=== PATIENT | female | born 1965 | race Caucasian/White ===

== ENCOUNTER → 2018-02-05 | Outpatient (CLI) | payer BC ==
--- NOTE | 2018-02-05 11:33 | RADIOLOGY REPORT (SQ) ---
EXAM DESCRIPTION: MRI LUMBAR SPINE COMBO COMPLETED DATE/TIME: 02/05/2018 10:53 am REASON FOR STUDY: METASTATIC BREAST CA (C50.919) C50.919 MALIGNANT NEOPLASM OF UNSP SITE OF UNSPECI FIED FEMAL COMPARISON: Whole-body bone scan 09/12/2016 TECHNIQUE: Sagittal and Axial imaging includes T1, T1 post gadolinium, T2, STIR and gradient echo se quences. Coronal T2/HASTE imaging. CONTRAST TYPE AND DOSE: 10 mL Mult[employer]ance. RENAL FUNCTION: GFR > 60. LIMITATIONS: None. FINDINGS: VISUALIZED UPPER ABDOMEN: Limited evaluation. No acute or suspicious findings suggested. SEGMENTATION: No transitional anatomy. The lowest well-developed disc space is labeled L5-S1. ALIGNMENT: Anatomic. VERTEBRAE: Intact. No fractures. BONE MARROW: Profound decreased marrow fat content throughout the lumbar spine and visualized sacrum and pelvis. There are multiple enhancing foci within the bone marrow of the lumbar and lower thoraci c vertebral bodies worrisome for foci metastatic disease. DISC SIGNAL: Diffuse decreased T2 weighted intervertebral disc signal without disc loss of height at L1-2, L4-5, and L5-S1. POSTERIOR ELEMENTS: Generally intact. No pars defect evident. HARDWARE: None in the spine. CORD AND CONUS: Normal in size and signal intensity. Conus at the L1 level. SOFT TISSUES: No aortic aneurysm seen. No bulky retroperitoneal adenopathy or mass. No paraspinal mas s or fluid. T10-11: At the upper edge of the field of view. No central or foraminal stenosis. Mild bilateral f acet arthropathy. T11-12: No central or foraminal stenosis. Mild bilateral facet arthropathy. T12-L1: No central or foraminal stenosis. Mild bilateral facet arthropathy. L1-L2: No central or foraminal stenosis. Mild bilateral facet arthropathy L2-L3: No central or foraminal stenosis. Mild bilateral facet arthropathy L3-L4: No central or foraminal stenosis. Mild bilateral facet arthropathy. L4-L5: Minimal posterior disc bulging, moderate bilateral facet and ligament hypertrophy. No central or foraminal encroachment. L5-S1: Tiny central posterior annular tear. No significant disc bulge. Mild bilateral facet arthrop athy. No central or foraminal encroachment. SACRUM: Visualized upper sacrum intact. ENHANCEMENT: No abnormal lumbar nerve root or conus enhancement. There are multiple subcentimeter fo ci of contrast enhancement scattered throughout the bone marrow of the lower thoracic and lumbar vert ebral bodies, visualized sacrum and pelvis from metastatic bony disease OTHER: No other significant findings. IMPRESSION: Bony metastatic disease No abnormal masses or enhancement along the distal thoracic cord, conus, or lumbar nerve roots. TECHNICAL DOCUMENTATION: JOB ID: [id number] [employer]- All Rights Reserved Reading location - IP/workstation name: [facility]
== END ==
LOC: RAD 09:53
PROVIDERS: ATTEND Radiology Radiation Oncology
DX: C79.51 Secondary malignant neoplasm of bone (principal); C50.919 Malignant neoplasm of unspecified site of unspecified female breast
CPT/HCPCS: 82565; 72158; A9577

== ENCOUNTER → 2018-03-13 | Outpatient (CLI) | payer BC ==
--- NOTE | 2018-03-13 13:05 | RADIOLOGY REPORT (SQ) ---
EXAM DESCRIPTION: NM WHOLE BODY BONE SCAN COMPLETED DATE/TIME: 03/13/2018 12:49 pm REASON FOR STUDY: BREAST CA (C50.919) C50.919 MALIGNANT NEOPLASM OF UNSP SITE OF UNSPECIFIED FEMAL COMPARISON: 09/12/2016 RADIONUCLIDE AND DOSE: 22.0 millicuries Tc99m MDP. The route of agent administration: Intravenous. ADDITIONAL DRUGS AND DOSES: None. TECHNIQUE: Routine delayed images at 3 hour post radionuclide injection acquired of the bony skeleto n including anterior and posterior whole-body projections and additional focused images as needed. LIMITATIONS: None. FINDINGS: BONES: There is widespread uptake in the axial skeleton and proximal right humerus. New a alley of increased uptake in the posterior sacrum bilaterally. KIDNEYS: Symmetric excretion without obstruction. OTHER: No other significant finding. IMPRESSION: Positive for bone metastasis. COMMENT: Quality measure 147: Current bone scan is compared with any available plain radiographs, p rior bone scans, and CT/MRI. TECHNICAL DOCUMENTATION: JOB ID: [id number] [employer]- All Rights Reserved Reading location - IP/workstation name: [email or web address]
== END ==
LOC: RAD 08:27
PROVIDERS: ATTEND Internal Medicine Geriatric Medicine
DX: C50.919 Malignant neoplasm of unspecified site of unspecified female breast (principal)
CPT/HCPCS: 78306; A9561; Q9969

== ENCOUNTER → 2018-03-16 | Outpatient (CLI) | payer BC ==
--- NOTE | 2018-03-16 14:27 | RADIOLOGY REPORT (SQ) ---
EXAM DESCRIPTION: CT CHEST WITH COMPLETED DATE/TIME: 03/16/2018 2:03 pm REASON FOR STUDY: BREAST CA (C50.919) C50.919 MALIGNANT NEOPLASM OF UNSP SITE OF UNSPECIFIED FEMAL COMPARISON: None. TECHNIQUE: CT scan of the chest performed using helical scanning technique with dynamic intravenous contrast injection. Images reviewed with lung, soft tissue and bone windows. Reconstructed coronal and sagittal MPR images reviewed. All images stored on PACS. All CT scanners at this facility use dose modulation, iterative reconstruction, and/or weight based d osing when appropriate to reduce radiation dose to as low as reasonably achievable (ALARA). [facility]: Dose Right [facility]: CareDose [facility]: Dose Right [facility]: Teradose 4D [facility]: [employer] CONTRAST TYPE AND DOSE: 100 cc Isovue 370- low osmolar. RENAL FUNCTION: GFR > 60. RADIATION DOSE: . LIMITATIONS: None. FINDINGS: LUNGS AND PLEURA: Scattered pulmonary nodules in both lungs measuring up to about 5 mm. N o effusions. HILAR AND MEDIASTINAL STRUCTURES: No identified masses or abnormal nodes. HEART AND VASCULAR STRUCTURES: No aneurysm or dissection. No central pulmonary emboli. No pericardi al effusion. HARDWARE: None in the chest. UPPER ABDOMEN: See separate report of the CT of the abdomen. THYROID AND OTHER SOFT TISSUES: Bilateral mastectomy and breast reconstruction. BONES: Diffuse mixed sclerotic and lytic bone metastasis. OTHER: No other significant finding. IMPRESSION: 1. Pulmonary nodules suspicious for metastatic disease. 2. Bone metastasis. TECHNICAL DOCUMENTATION: JOB ID: [id number] Quality ID # [id number]: Final reports with documentation of one or more dose reduction techniques (e.g., Au tomated exposure control, adjustment of the mA and/or kV according to patient size, use of iterative reconstruction technique) 2010 [employer]- All Rights Reserved Reading location - IP/workstation name: Unknown
--- NOTE | 2018-03-16 14:32 | RADIOLOGY REPORT (SQ) ---
EXAM DESCRIPTION: CT ABD/PELVIS WITH IV ORAL COMPLETED DATE/TIME: 03/16/2018 2:03 pm REASON FOR STUDY: BREAST CA (C50.919) C50.919 MALIGNANT NEOPLASM OF UNSP SITE OF UNSPECIFIED FEMAL COMPARISON: None. TECHNIQUE: CT scan of the abdomen and pelvis performed using helical scanning technique with dynamic intravenous contrast injection. No oral contrast. Images reviewed with lung, soft tissue, and bone windows. Reconstructed coronal and sagittal MPR images reviewed. Delayed images for evaluation of the urinary system also acquired. All images stored on PACS. All CT scanners at this facility use dose modulation, iterative reconstruction, and/or weight based d osing when appropriate to reduce radiation dose to as low as reasonably achievable (ALARA). [facility]: Dose Right [facility]: CareDose [facility]: Dose Right [facility]: Teradose 4D [facility]: [employer] CONTRAST TYPE AND DOSE: See separate report of the same date. RENAL FUNCTION: See separate report of the same date. RADIATION DOSE: . LIMITATIONS: None. FINDINGS: LOWER CHEST: See separate report of the CT of the chest. LIVER: Subtle low-density lesion in the dome of the liver on series 3, image 14 measuring about 1 cm. SPLEEN: Normal size. No focal lesions. PANCREAS: No masses. No significant calcifications. No adjacent inflammation or peripancreatic fluid collections. Pancreatic duct not dilated. GALLBLADDER: No identified stones by CT criteria. No inflammatory changes to suggest cholecystitis. ADRENAL GLANDS: Subcentimeter left adrenal nodule too small to characterize. RIGHT KIDNEY AND URETER: No solid masses. Renal calculi measuring up to 13 mm. No hydronephrosis or hydroureter. LEFT KIDNEY AND URETER: No solid masses. Renal calculi measuring up to 6 mm. No hydronephrosis or hydroureter. AORTA AND VESSELS: No aneurysm. No dissection. Renal arteries, SMA, celiac without stenosis. RETROPERITONEUM: No retroperitoneal adenopathy, hemorrhage or masses. BOWEL AND PERITONEAL CAVITY: No masses or inflammatory changes. No free fluid or peritoneal masses. APPENDIX: Normal. PELVIS: No mass. No free fluid. Normal bladder. ABDOMINAL WALL: No masses. No hernias. BONES: Diffuse skeletal metastasis. OTHER: No other significant finding. IMPRESSION: 1. Subtle lesion in the dome of the liver too small to further characterize. Cannot exclude metastat ic lesion. Consider MRI if this will alter management. 2. Bone metastasis. 3. Nonobstructing bilateral renal calculi. TECHNICAL DOCUMENTATION: JOB ID: [id number] Quality ID # 436: Final reports with documentation of one or more dose reduction techniques (e.g., Au tomated exposure control, adjustment of the mA and/or kV according to patient size, use of iterative reconstruction technique) 2010 [employer]- All Rights Reserved Reading location - IP/workstation name: Unknown
== END ==
LOC: RAD 13:15
PROVIDERS: ATTEND Internal Medicine Geriatric Medicine
DX: C50.919 Malignant neoplasm of unspecified site of unspecified female breast (principal); C79.51 Secondary malignant neoplasm of bone; N20.0 Calculus of kidney
CPT/HCPCS: 71260; 74177; 82565

== ENCOUNTER → 2018-06-22 | Outpatient (CLI) | payer BC ==
--- NOTE | 2018-06-22 08:40 | WOMENS IMAGING REPORT ---
EXAM DESCRIPTION: U/S ABDOMEN LIMITED COMPLETED DATE/TIME: 06/22/2018 8:24 am REASON FOR STUDY: R10.9 R10.9 UNSPECIFIED ABDOMINAL PAIN COMPARISON: 03/16/2018 CT chest abdomen and pelvis TECHNIQUE: Dynamic and static grayscale images acquired of the abdomen and recorded on PACS. Additio nal selected color Doppler and spectral images recorded. LIMITATIONS: Midline bowel gas FINDINGS: PANCREAS: Midline pancreas unremarkable LIVER: Normal size. Multiple hypoechoic solid nodules in the right and left lobe liver worrisome for metastatic disease. Largest lesion in the left lobe liver is 2.5 cm in size. Largest lesion in the right lobe liver is 2 cm in size. Findings discussed with Dr. Carrasco LIVER VASCULATURE: Normal directional flow of the main portal vein and hepatic veins. GALLBLADDER: No stones. Normal wall thickness. No pericholecystic fluid. ULTRASOUND-DETECTED BUTLER'S SIGN: Negative. INTRAHEPATIC DUCTS AND COMMON DUCT: CBD and intrahepatic ducts normal caliber. No filling defects. INFERIOR VENA CAVA: Normal flow. AORTA: No aneurysm. RIGHT KIDNEY: Normal size. Right-sided intrarenal nonobstructive stones are present, the largest is 13 cm in the upper pole right kidney. No right hydronephrosis PERITONEAL AND RIGHT PLEURAL SPACE: No ascites or effusions. OTHER: No other significant findings. IMPRESSION: Liver metastatic lesions TECHNICAL DOCUMENTATION: JOB ID: [id number]- All Rights Reserved Reading location - IP/workstation name: [email or web address]
== END ==
LOC: WI 07:26
PROVIDERS: ATTEND Internal Medicine Hematology & Oncology
DX: R10.9 Unspecified abdominal pain (principal)
CPT/HCPCS: 76705

== ENCOUNTER 2018-09-03 10:34 | Day surgery (SDC) | payer BC ==
[~2018-09-03 10:34] MED LIST: CEFAZOLIN 1 GM/D5W RTU 1 GM/50 ML RTUPB IV ONE; CEFAZOLIN 1 GM/D5W RTU 1 GM/50 ML RTUPB IV PRN; DEXTROSE 5%-1/2 NORMAL SALINE 1,000 ML IV PRN; DIAZEPAM 5 MG TABLET ONE; DIAZEPAM 5 MG TABLET PO PRN; OXYCODONE-ACETAMINOPHEN 5-325 MG TABLET ONE; OXYCODONE-ACETAMINOPHEN 5-325 MG TABLET PO PRN
[2018-09-03] MEDS ORDERED: BACITRACIN INJ 50,000 UNIT VIAL ONE (11:26)
[2018-09-03] MEDS ORDERED: LIDOCAINE 0.5% INJ-PF (5 MG/ML) 50 ML SDV ONE (11:26)
[2018-09-03] MEDS ORDERED: FENTANYL CITRATE INJ/PF 100 MCG/2 ML AMPUL ONE (11:29)
[2018-09-03] MEDS ORDERED: MIDAZOLAM 2 MG/2 ML INJ ONE (11:29)
[2018-09-03 11:31] LABS: HEMATOCRIT 33.2 % (36.0-47.0); HEMOGLOBIN 10.8 g/dL (12.0-15.5); MEAN CORPUSCULAR HEMOGLOBIN 27.6 pg (27.0-33.4); MEAN CORPUSCULAR HGB CONC 32.6 g/dL (32.0-36.0); MEAN CORPUSCULAR VOLUME 85 fl (80-97); PLATELET COUNT 155 10^3/uL (150-450); RED BLOOD COUNT 3.91 10^6/uL (3.72-5.28); RED CELL DISTRIBUTION WIDTH 21.1 % (11.5-14.0); WHITE BLOOD COUNT 21.8 10^3/uL (4.0-10.5)
--- NOTE | 2018-09-03 11:42 | RADIOLOGY REPORT (SQ) ---
EXAM DESCRIPTION: CHEST SINGLE VIEW COMPLETED DATE/TIME: 09/03/2018 11:02 am REASON FOR STUDY: PREOP COMPARISON: 09/03/2010. EXAM PARAMETERS: NUMBER OF VIEWS: One view. TECHNIQUE: Single frontal radiographic view of the chest acquired. RADIATION DOSE: NA LIMITATIONS: None. FINDINGS: LUNGS AND PLEURA: No opacities, masses or pneumothorax. No pleural effusion. MEDIASTINUM AND HILAR STRUCTURES: No masses. Contour normal. HEART AND VASCULAR STRUCTURES: Heart normal in size. Normal vasculature. BONES: No acute findings. HARDWARE: None in the chest. OTHER: No other significant finding. IMPRESSION: NO ACUTE RADIOGRAPHIC FINDING IN THE CHEST. TECHNICAL DOCUMENTATION: JOB ID: [id number] [employer]- All Rights Reserved Reading location - IP/workstation name: [email or web address]
[2018-09-03 12:38] LABS: ANION GAP 10 (5-19); BLOOD UREA NITROGEN 18 mg/dL (7-20); CALCIUM 8.5 mg/dL (8.4-10.2); CARBON DIOXIDE 28 mmol/L (22-30); CHLORIDE 101 mmol/L (98-107); GLUCOSE 104 mg/dL (75-110); SODIUM 139.2 mmol/L (137-145)
--- NOTE | 2018-09-03 13:22 | Discharge Summary ---
Discharge Summary (SDC) - Discharge Final Diagnosis: Metastatic breast cancer. Date of Surgery: 09/03/18 Discharge Date: 09/05/18 Condition: Good Treatment or Instructions: Discharge home [after recovery per ASU criteria]. Diet as tolerated, when fully awake advance as tolerated. Activities within moderation encouraged. Follow up in my office by appointment in about [1 week]. Call for appointment. Leave wounds [covered], [keep clean and dry, until office visit in 1 week]. Hold of on school/work [until evaluation in office]. Meds per med rec. Percocet. May shower [in 48 hrs], [try to keep operated area as dry as possible]. Prescriptions: Oxycodone HCl/Acetaminophen [Percocet 5-325 mg Tablet] 1 tab PO ASDIR PRN #10 tab PRN Reason: Referrals: MONIQUE RUSH MD [Primary Care Provider] - Discharge Diet: As Tolerated Respiratory Treatments at Home: Deep Breathing/Coughing Discharge Activity: Activity As Tolerated Report the Following to Your Physician Immediately: Shortness of Breath, Unusual Bleeding
--- NOTE | 2018-09-03 13:50 | Operative Report ---
Operative Report DATE OF SURGERY: 09/03/18 PREOPERATIVE DIAGNOSIS: Metastatic breast cancer. POSTOPERATIVE DIAGNOSIS: Metastatic breast cancer. OPERATION: 1. Ultrasound evaluation of the right internal jugular vein. 2. Port-A-Cath insertion via real time access in the right internal jugular vein. 3. Angiogram and interpretation. SURGEON: YASEMIN BROWN CASING RUNNING MACHINE TENDER: None. ANESTHESIA: Moderate Sedation TISSUE REMOVED OR ALTERED: Not applicable. COMPLICATIONS: None. ESTIMATED BLOOD LOSS: 5 mL. INTRAOPERATIVE FINDINGS: Of a satisfactory right internal jugular vein to support catheter. About 1.5 cm in diameter. Satisfactory placement with position of the tip of the catheter just down in the right atrium. Easy egress of blood and ingress of heparinized solution. Smooth flow of contrast through the right atrium, ventricle and pulmonary outflow tract. PROCEDURE: After obtaining informed consent, the patient was taken to [facility] and positioned supine. The [right] neck and chest were prepared with chlorhexidine and draped out with sterile linen. After the " universal timeout", in which it was verified that the patient continued to receive antibiotic, the procedure commenced. A steriley sheathed ultrasound probe was used to evaluate the [ right] internal jugular vein. Local anesthesia was infiltrated adjacent to the probe. Access into the [right] internal jugular vein was obtained using a micropuncture needle, followed by micropuncture wire and then a micropuncture catheter. This was followed by introduction of a 0.035 guidewire the tip of which was placed down into the inferior vena cava . The port sites was marked , locally anesthetized and incision made. Dissection now proceeded to the deep subcutaneous subcutaneous tissues so that a pocket for the port was made. Meticulous hemostasis was secured and the catheter was tunneled between the 2 incisions. Proximally, the catheter was now positioned using a peel-away sheath. Distally the catheter was tailored to an appropriate length and then mated to the port using the contained fixating device. The port was now placed in the pocket and the catheter optimally positioned. The port was accessed with a Tanner needle and an angiogram done under digital subtraction. The findings as dictated. With adequate and satisfactory positioning, both lumens of the chamber were irrigated with heparinized solution. The wounds were now closed using interrupted 3-0 PDS to the subcutaneous tissues and a continuous subcuticular suture of 4-0 Monocryl to the skin. These are reinforced with Steri-Strips over benzoin and then dressings applied. Copies of the dictated operative report for Dr. Yasemin Thomas MD.
[2018-09-03] MEDS ORDERED: DEXTROSE 5%-1/2 NORMAL SALINE 500 ML IV ONE (14:00)
--- NOTE | 2018-09-03 14:00 | RADIOLOGY REPORT (SQ) ---
EXAM DESCRIPTION: PORTACATH INSERTION COMPLETED DATE/TIME: 09/03/2018 1:50 pm REASON FOR STUDY: C50.911 C50.911 MALIGNANT NEOPLASM OF UNSP SITE OF RIGHT FEMALE YUE COMPARISON: None. FLUOROSCOPY TIME: Less than 0.1 minute. 8 images saved to PACS. TECHNIQUE: Intra-operative images acquired during surgical procedure to evaluate progress. NUMBER OF IMAGES: 8 images. LIMITATIONS: None. FINDINGS: Images of the chest acquired during catheter placement. IMPRESSION: IMAGE(S) OBTAINED DURING PROCEDURE. COMMENT: Quality ID 145: Final reports for procedures using fluoroscopy that document radiation exp osure indices, or exposure time and number of fluorographic images (if radiation exposure indices are not available) Please consult full operative report of the attending physician for description of the procedure. TECHNICAL DOCUMENTATION: JOB ID: [id number] [employer]- All Rights Reserved Reading location - IP/workstation name: [email or web address]
[2018-09-03 14:33] VITALS: BP 102/61
== END 2018-09-03 14:30 | disposition home or self-care (01) ==
LOC: CCL 10:34
PROVIDERS: ATTEND Surgery
DX: C50.911 Malignant neoplasm of unspecified site of right female breast (principal); Z01.818 Encounter for other preprocedural examination; D64.9 Anemia, unspecified; Z79.899 Other long term (current) drug therapy
CPT/HCPCS: 36415; 85027; 80048; 36561; 76937; 77001; 71045; C1752; C1788; Q9967; J2250; J3490 ×2; J0690; J3010; J1644

== ENCOUNTER → 2018-11-15 | Outpatient (CLI) | payer BC ==
--- NOTE | 2018-11-15 12:29 | RADIOLOGY REPORT (SQ) ---
EXAM DESCRIPTION: CT CHEST WITH COMPLETED DATE/TIME: 11/15/2018 10:26 am REASON FOR STUDY: BREAST CA (C50.911) C50.911 MALIGNANT NEOPLASM OF UNSP SITE OF RIGHT FEMALE YUE COMPARISON: 03/16/2018 TECHNIQUE: CT scan of the chest performed using helical scanning technique with dynamic intravenous contrast injection. Images reviewed with lung, soft tissue and bone windows. Reconstructed coronal and sagittal MPR and MIP images reviewed. All images stored on PACS. All CT scanners at this facility use dose modulation, iterative reconstruction, and/or weight based d osing when appropriate to reduce radiation dose to as low as reasonably achievable (ALARA). [facility]: Dose Right [facility]: CareDose [facility]: Dose Right [facility]: Teradose 4D [facility]: [employer] CONTRAST TYPE AND DOSE: See separate report of the same date. RENAL FUNCTION: See separate report. RADIATION DOSE: . LIMITATIONS: None. FINDINGS: LUNGS AND PLEURA: Interval improvement. Several faint persistent pulmonary nodules but no new nodules or progression. Largest nodule about 5 mm. Several nodules have resolved. HILAR AND MEDIASTINAL STRUCTURES: No identified masses or abnormal nodes. HEART AND VASCULAR STRUCTURES: No aneurysm or dissection. No central pulmonary emboli. No pericardi al effusion. HARDWARE: None in the chest. UPPER ABDOMEN: See separate report of the CT of the abdomen. THYROID AND OTHER SOFT TISSUES: Bilateral breast implants. BONES: Extensive mixed sclerotic and lytic bone metastasis unchanged. No pathologic fracture. OTHER: Right-sided port tip in the SVC. IMPRESSION: Favorable response to therapy of pulmonary nodules. Bone metastasis. TECHNICAL DOCUMENTATION: JOB ID: [id number] Quality ID # 436: Final reports with documentation of one or more dose reduction techniques (e.g., Au tomated exposure control, adjustment of the mA and/or kV according to patient size, use of iterative reconstruction technique) 2010 [employer]- All Rights Reserved Reading location - IP/workstation name: [email or web address]
--- NOTE | 2018-11-15 12:51 | RADIOLOGY REPORT (SQ) ---
EXAM DESCRIPTION: CT ABD/PELVIS WITH IV ORAL COMPLETED DATE/TIME: 11/15/2018 10:26 am REASON FOR STUDY: BREAST CA (C50.911) C50.911 MALIGNANT NEOPLASM OF UNSP SITE OF RIGHT FEMALE YUE COMPARISON: 03/16/2018 TECHNIQUE: CT scan of the abdomen and pelvis performed using helical scanning technique with dynamic intravenous contrast injection. No oral contrast. Images reviewed with lung, soft tissue, and bone windows. Reconstructed coronal and sagittal MPR images reviewed. Delayed images for evaluation of the urinary system also acquired. All images stored on PACS. All CT scanners at this facility use dose modulation, iterative reconstruction, and/or weight based d osing when appropriate to reduce radiation dose to as low as reasonably achievable (ALARA). [facility]: Dose Right [facility]: CareDose [facility]: Dose Right [facility]: Teradose 4D [facility]: [employer] CONTRAST TYPE AND DOSE: contrast/concentration: Isovue 350.00 mg/ml; Total Contrast Delivered: 51.0 ml; Total Saline Delivered: 65.0 ml RENAL FUNCTION: GFR > 60. RADIATION DOSE: CT Rad equipment meets quality standard of care and radiation dose reduction techniq ues were employed. CTDIvol: 4.4 - 4.5 mGy. DLP: 579 mGy-cm.. LIMITATIONS: None. FINDINGS: LOWER CHEST: See separate report of the CT of the chest. LIVER: Innumerable low-density lesions scattered throughout the liver, largest 2 cm subdiaphragmatic. SPLEEN: Normal size. No focal lesions. PANCREAS: No masses. No significant calcifications. No adjacent inflammation or peripancreatic fluid collections. Pancreatic duct not dilated. GALLBLADDER: No identified stones by CT criteria. No inflammatory changes to suggest cholecystitis. ADRENAL GLANDS: No significant masses or asymmetry. RIGHT KIDNEY AND URETER: No solid masses. Unchanged renal calculi. No hydronephrosis or hydrouret er. LEFT KIDNEY AND URETER: No solid masses. Unchanged renal calculi. No hydronephrosis or hydrourete r. AORTA AND VESSELS: No aneurysm. No dissection. Renal arteries, SMA, celiac without stenosis. RETROPERITONEUM: New adenopathy, the largest 1.3 x 0.8 cm image 38 to left of midline. BOWEL AND PERITONEAL CAVITY: No masses or inflammatory changes. No free fluid or peritoneal masses. APPENDIX: Normal. PELVIS: No mass. No free fluid. Normal bladder. ABDOMINAL WALL: No masses. No hernias. BONES: Stable bone metastasis. OTHER: No other significant finding. IMPRESSION: New liver and retroperitoneal metastasis. TECHNICAL DOCUMENTATION: JOB ID: [id number] Quality ID # 436: Final reports with documentation of one or more dose reduction techniques (e.g., Au tomated exposure control, adjustment of the mA and/or kV according to patient size, use of iterative reconstruction technique) 2010 [employer]- All Rights Reserved Reading location - IP/workstation name: [facility]
--- NOTE | 2018-11-15 16:04 | RADIOLOGY REPORT (SQ) ---
EXAM DESCRIPTION: NM WHOLE BODY BONE SCAN COMPLETED DATE/TIME: 11/15/2018 2:52 pm REASON FOR STUDY: BREAST CA (C50.911) C50.911 MALIGNANT NEOPLASM OF UNSP SITE OF RIGHT FEMALE YUE [facility]: [facility] RADIONUCLIDE AND DOSE: 21.3 millicuries Tc99m MDP. The route of agent administration: Intravenous. ADDITIONAL DRUGS AND DOSES: None. TECHNIQUE: Routine delayed images at 3 hour post radionuclide injection acquired of the bony skeleto n including anterior and posterior whole-body projections and additional focused images as needed. LIMITATIONS: None. FINDINGS: BONES: Multiple areas of increased uptake in the axial skeleton and proximal humerus. Les s conspicuous in the proximal right humerus compared to the prior. No new areas of abnormal uptake. KIDNEYS: Symmetric excretion without obstruction. OTHER: No other significant finding. IMPRESSION: Stable bone metastasis. No progression. COMMENT: Quality measure 147: Current bone scan is compared with any available plain radiographs, p rior bone scans, and CT/MRI. TECHNICAL DOCUMENTATION: JOB ID: [id number] [employer]- All Rights Reserved Reading location - IP/workstation name: [email or web address]
== END ==
LOC: RAD 09:37
PROVIDERS: ATTEND Internal Medicine Hematology & Oncology
DX: C50.911 Malignant neoplasm of unspecified site of right female breast (principal); C79.51 Secondary malignant neoplasm of bone
CPT/HCPCS: 78306; 71260; 74177; A9561; Q9969

== ENCOUNTER → 2019-01-29 | Outpatient (CLI) | payer BC ==
--- NOTE | 2019-01-29 14:54 | RADIOLOGY REPORT (SQ) ---
EXAM DESCRIPTION: NM WHOLE BODY BONE SCAN COMPLETED DATE/TIME: 01/29/2019 2:44 pm REASON FOR STUDY: C50.911 MALIGNANT NEOPLASM OF UNSP SITE OF RIGHT FEMALE BREAST C50.911 MALIGNANT NEOPLASM OF UNSP SITE OF RIGHT FEMALE YUE COMPARISON: Bone scan dated 11/15/2018, and 03/13/2018 CT chest abdomen pelvis dated 11/15/2018 RADIONUCLIDE AND DOSE: 20.9 millicuries Tc99m MDP. The route of agent administration: Intravenous. ADDITIONAL DRUGS AND DOSES: None. TECHNIQUE: Routine delayed images at 3 hour post radionuclide injection acquired of the bony skeleto n including anterior and posterior whole-body projections and additional focused images as needed. LIMITATIONS: None. FINDINGS: BONES: There are persistent areas of uptake in the axial skeleton. Mild uptake remains in the right and left proximal humeri. There is increased uptake in the lumbar spine. When compared t o prior study findings are stable. KIDNEYS: Symmetric excretion without obstruction. OTHER: No other significant finding. IMPRESSION: Stable bone scan. Persistent areas of uptake in the axial and appendicular skeleton. N o progression. COMMENT: Quality measure 147: Current bone scan is compared with any available plain radiographs, p rior bone scans, and CT/MRI. TECHNICAL DOCUMENTATION: JOB ID: [id number] [employer]- All Rights Reserved Reading location - IP/workstation name: [email or web address]
== END ==
LOC: RAD 11:26
PROVIDERS: ATTEND Internal Medicine Hematology & Oncology
DX: C50.911 Malignant neoplasm of unspecified site of right female breast (principal)
CPT/HCPCS: 78306; A9561

== ENCOUNTER → 2019-02-01 | Outpatient (CLI) | payer BC ==
--- NOTE | 2019-02-01 14:01 | RADIOLOGY REPORT (SQ) ---
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 Images reviewed with lung, soft tissue and bone windows. Reconstructed coronal and sagittal MPR and MIP images reviewed. All images stored on PACS. All CT scanners at this facility use dose modulation, iterative reconstruction, and/or weight based d osing when appropriate to reduce radiation dose to as low as reasonably achievable (ALARA). [facility]: Dose Right [facility]: CareDose [facility]: Dose Right [facility]: Teradose 4D [facility]: [place] CONTRAST TYPE AND DOSE: 55 mL Omnipaque 350- low osmolar. RENAL FUNCTION: Creatinine 0.7 RADIATION DOSE: . LIMITATIONS: None. FINDINGS: LUNGS AND PLEURA: And occasional small pulmonary nodular remains there continues to be imp rovement when compared to prior study. No consolidation. HILAR AND MEDIASTINAL STRUCTURES: No identified masses or abnormal nodes. HEART AND VASCULAR STRUCTURES: No aneurysm or dissection. No central pulmonary emboli. No pericardi al effusion. HARDWARE: Pnftby-X-Kyor is in place. UPPER ABDOMEN: Hepatic lesions are noted consistent with metastatic disease. Overall there appears t o be mild improvement from prior study. Please refer to the abdomen and pelvis CT for further discus doc. THYROID AND OTHER SOFT TISSUES: No masses. No adenopathy. BONES: Widespread bony metastatic disease is again noted. OTHER: No other significant finding. IMPRESSION: 1. An occasional small pulmonary nodule remains but is improved from prior study. 2. Widespread bony metastatic disease is unchanged. 3. Hepatic disease appears slightly improved please refer to the CT abdomen pelvis for further discu ssion. TECHNICAL DOCUMENTATION: JOB ID: [id number] Quality ID # [id number]: Final reports with documentation of one or more dose reduction techniques (e.g., Au tomated exposure control, adjustment of the mA and/or kV according to patient size, use of iterative reconstruction technique) 2010 [employer]- All Rights Reserved Reading location - IP/workstation name: [email or web address]
--- NOTE | 2019-02-01 14:04 | RADIOLOGY REPORT (SQ) ---
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 TECHNIQUE: CT scan of the abdomen and pelvis performed using helical scanning technique with dynamic intravenous contrast injection. No oral contrast. Images reviewed with lung, soft tissue, and bone windows. Reconstructed coronal and sagittal MPR images reviewed. Delayed images for evaluation of the urinary system also acquired. All images stored on PACS. All CT scanners at this facility use dose modulation, iterative reconstruction, and/or weight based d osing when appropriate to reduce radiation dose to as low as reasonably achievable (ALARA). [facility]: Dose Right [facility]: CareDose [facility]: Dose Right [facility]: Teradose 4D [facility]: [employer] CONTRAST TYPE AND DOSE: contrast/concentration: Isovue 350.00 mg/ml; Total Contrast Delivered: 55.0 ml; Total Saline Delivered: 65.0 ml RENAL FUNCTION: Creatinine 0.7 RADIATION DOSE: CT Rad equipment meets quality standard of care and radiation dose reduction techniq ues were employed. CTDIvol: 4.4 - 4.5 mGy. DLP: 607 mGy-cm.. LIMITATIONS: None. FINDINGS: LOWER CHEST: Please refer to the chest CT for further discussion LIVER: Numerous hepatic lesions are again noted consistent with metastatic disease. They are too num erous to count. Overall there has been slight improvement when compared to prior study. SPLEEN: Normal size. No focal lesions. PANCREAS: No masses. No significant calcifications. No adjacent inflammation or peripancreatic fluid collections. Pancreatic duct not dilated. GALLBLADDER: No identified stones by CT criteria. No inflammatory changes to suggest cholecystitis. ADRENAL GLANDS: No significant masses or asymmetry. RIGHT KIDNEY AND URETER: No solid masses. No significant calcifications. No hydronephrosis or hyd roureter. LEFT KIDNEY AND URETER: No solid masses. No significant calcifications. No hydronephrosis or hydr oureter. AORTA AND VESSELS: No aneurysm. No dissection. Renal arteries, SMA, celiac without stenosis. RETROPERITONEUM: Mild improvement in the retroperitoneal adenopathy. BOWEL AND PERITONEAL CAVITY: No masses or inflammatory changes. No free fluid or peritoneal masses. APPENDIX: Normal. PELVIS: No mass. No free fluid. Normal bladder. ABDOMINAL WALL: No masses. No hernias. BONES: Widespread bony metastatic disease is grossly unchanged. OTHER: No other significant finding. IMPRESSION: 1. Hepatic metastases are slightly improved from prior study. 2. Retroperitoneal adenopathy is mildly improved as well. 3. Bony metastatic disease is stable. TECHNICAL DOCUMENTATION: JOB ID: [id number] Quality ID # [id number]: Final reports with documentation of one or more dose reduction techniques (e.g., Au tomated exposure control, adjustment of the mA and/or kV according to patient size, use of iterative reconstruction technique) 2010 [employer]- All Rights Reserved Reading location - IP/workstation name: [email or web address]
== END ==
LOC: RAD 12:39
PROVIDERS: ATTEND Internal Medicine Hematology & Oncology
DX: C50.911 Malignant neoplasm of unspecified site of right female breast (principal); C78.7 Secondary malignant neoplasm of liver and intrahepatic bile duct; C79.51 Secondary malignant neoplasm of bone
CPT/HCPCS: 71260; 74177; 82565

== ENCOUNTER → 2019-04-03 | Outpatient (CLI) | payer BC ==
--- NOTE | 2019-04-03 17:03 | RADIOLOGY REPORT (SQ) ---
EXAM DESCRIPTION: U/S THYROID/SFT TISS HD NECK COMPLETED DATE/TIME: 04/03/2019 4:07 pm REASON FOR STUDY: R94.6 ABNORMAL RESULTS OF THYROID FUNCTION STUDIES R94.6 ABNORMAL RESULTS OF THYR OID FUNCTION STUDIES COMPARISON: None. TECHNIQUE: Dynamic and static kan-scale images acquired of the thyroid gland. Selected additional c olor/power Doppler images recorded. All images stored to PACS. LIMITATIONS: None. FINDINGS: RIGHT LOBE: Normal size. Homogeneous echotexture. No cystic or solid masses. LEFT LOBE: Normal size. Homogeneous echotexture. Posterior left mid pole 9 mm septated cyst, anecho ic wider than tall with partial border loss. No comet tail artifact. This is a TIRADS 1 lesion ISTHMUS: Normal size. Homogeneous echotexture. No cystic or solid masses. OTHER: No other significant finding. IMPRESSION: 9 mm thyroid cyst left midpole gland, benign in appearance. TI-RADS 1 lesion Otherwise unremarkable study COMMENT: The [employer] (A[employer]) Thyroid Imaging Reporting And Data System (TI-RADS ) is an ultrasound feature based summed scoring system of risk categorization and management recommen dations for thyroid nodules. TI-RADS assessment categories are as follows: 0 - Incomplete exam: Additional imaging or comparison to prior examinations recommended. 1. - Benign: Fine-needle aspiration or follow-up not routinely recommended in the absence of clinical change. 2. - Not suspicious: Fine-needle aspiration or follow-up not routinely recommended in the absence of clinical change. 3. - Mildly suspicious: Fine-needle aspiration recommended if greater than or equal to 2.5 cm in size . Ultrasound follow-up recommended if greater than or equal to 1.5 cm in size. 4. - Moderately suspicious: Fine-needle aspiration recommended if greater than or equal to 1.5 cm in size. Ultrasound follow-up recommended if greater than or equal to 1.0 cm in size. 5. - Highly suspicious: Fine-needle aspiration recommended if greater than or equal to 1.0 cm in size . Ultrasound follow-up recommended if greater than or equal to 0.5 cm in size. TECHNICAL DOCUMENTATION: JOB ID: [id number] [employer]- All Rights Reserved Reading location - IP/workstation name: [email or web address]
== END ==
LOC: RAD 15:41
PROVIDERS: ATTEND Family Medicine
DX: E04.1 Nontoxic single thyroid nodule (principal)
CPT/HCPCS: 76536

== ENCOUNTER → 2019-07-07 | Outpatient (CLI) | payer BC ==
--- NOTE | 2019-07-09 08:56 | RADIOLOGY REPORT (SQ) ---
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 TECHNIQUE: Blood glucose level was verified. Above dose of FDG was injected intravenously. 2-D seg mented attenuation correction images were obtained from the base of the skull to the midthighs. Nonc ontrast CT images were obtained for attenuation correction and fusion with emission images. CT image s were performed without oral or intravenous contrast and are not sensitive for parenchymal lesions. A series of overlapping emission PET images were obtained. Images reviewed and manipulated at [facility] work station by the radiologist. Images stored on PACS. LIMITATIONS: None. FINDINGS: HEAD AND NECK: Known dural disease not well evaluated on this exam. No other areas of abn ormal metabolic activity in the soft tissues of the head and neck. CHEST: No areas of abnormal metabolic activity in the chest. ABDOMEN AND PELVIS: Background liver activity (max SUV 3.0). There are scattered foci of increased a ctivity within the liver, most conspicuous within the hepatic dome with (max SUV 4.8) which correspon ds to a ill-defined 14 mm hypodense right hepatic lobe lesion (series 3, image 98), stable. There ar e additional scattered foci of increased FDG uptake throughout the right hepatic lobe, some of which correspond to hypodense hepatic lesions. Hypermetabolic activity within the left adrenal nodule (max SUV 7.1) which measures 3.3 x 1.3 cm (series 3, image 125), previously measuring 3.0 x 1.3 cm. Ther e is decreased size and metabolic activity within the previously described left para-aortic lymph nod e (max SUV 2.4, previously 3.9). No new hypermetabolic adenopathy. No new areas of abnormal metabol ic activity in the abdomen or pelvis. Expected physiologic activity is present in the genitourinary system and bowel. PROXIMAL LOWER EXTREMITIES: No areas of abnormal metabolic activity in the soft tissues of the lower extremities. BONES: Continued scattered areas of increased activity throughout the visualized axial skeleton. For reference there is an area of increased uptake within the right proximal humerus (max SUV 6.5). CT demonstrates diffuse sclerotic osseous disease. ADDITIONAL CT FINDINGS: Right upper lobe calcified granuloma. Right-sided chest port with catheter t ip at cavoatrial junction. Evidence of bilateral mastectomies and breast prostheses. No acute intra thoracic process. Mildly increased size of the left adrenal nodule as above. Nonobstructing bilater al renal stones. Hypodense hepatic lesions, difficult to evaluate without intravenous contrast. No evidence of acute intra-abdominal/pelvic process. Diffuse osseous sclerotic lesions. IMPRESSION: 1. Persistent increased FDG uptake within scattered hepatic lesions, left adrenal gland , and multiple osseous lesions compatible with metastatic disease and as detailed above. 2. Decreased size and metabolic uptake within the previously described left para-aortic lymph node. TECHNICAL DOCUMENTATION: JOB ID: [id number] [employer]- All Rights Reserved Reading location - IP/workstation name: [email or web address]
== END ==
LOC: RAD 16:45
PROVIDERS: ATTEND Internal Medicine Hematology & Oncology
DX: C50.911 Malignant neoplasm of unspecified site of right female breast (principal); C79.51 Secondary malignant neoplasm of bone; Z90.13 Acquired absence of bilateral breasts and nipples
CPT/HCPCS: 78815; A9552

== ENCOUNTER 2019-07-31 19:26 | Emergency (ER) | payer BC ==
[2019-07-31 19:35] VITALS: BP 149/82
--- NOTE | 2019-07-31 20:24 | ER Document Report ---
ED Medical Screen (RME) - General Chief Complaint: Probable Seizure Stated Complaint: POSSIBLE SEIZURE Time Seen by Provider: 07/31/19 20:14 Primary Care Provider: MAYI CASTANEDA MD [Primary Care Provider] - Follow up as needed Mode of Arrival: Wheelchair Information source: Patient Notes: Patient presents emergency department post seizure. 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 She is just received radiation treatments to her brain. She reports today she was at [facility] just leaving when she had a seizure in the car. She reports they told her this may be expected. Patient is very tearful. She reports she was awake during the entire seizure. No change in LOC. Patient's oncologist is Dr. wayne. Patient has taken half a tab of Ativan. I have greeted and performed a rapid initial assessment of this patient. A comprehensive ED assessment and evaluation of the patient, analysis of test results and completion of the medical decision making process will be conducted by additional ED providers. Dictation of this chart was performed using voice recognition software; therefore, there may be some unintended grammatical errors. TRAVEL OUTSIDE OF THE [place] IN LAST 30 DAYS: No - Related Data Allergies/Adverse Reactions: No Known Allergies Allergy (Unverified 05/15/15 16:01) Past Medical History - Social History Frequency of alcohol use: None Drug Abuse: None - Past Medical History Cardiac Medical History: Denies: Hx Coronary Artery Disease, Hx Heart Attack, Hx Hypertension Pulmonary Medical History: Denies: Hx Asthma, Hx Bronchitis, Hx COPD, Hx Pneumonia Neurological Medical History: Denies: Hx Cerebrovascular Accident, Hx Seizures Malignancy Medical History: Reports: Hx Breast Cancer Musculoskeltal Medical History: Denies Hx Arthritis Past Surgical History: Reports: Hx Mastectomy, Hx Oral Surgery, Hx Tonsillectomy - Immunizations Hx Diphtheria, Pertussis, Tetanus Vaccination: Yes History of Influenza Vaccine for 08/2017 - 01/2018 Season: No Physical Exam - Vital signs Vitals: Temp Pulse Resp BP Pulse Ox 98.1 F 103 H 20 149/82 H 100 07/31/19 19:32 07/31/19 19:32 07/31/19 19:32 07/31/19 19:32 07/31/19 19:32 Course - Vital Signs Vital signs: Temp Pulse Resp BP Pulse Ox 98.1 F 103 H 20 149/82 H 100 07/31/19 19:32 07/31/19 19:32 07/31/19 19:32 07/31/19 19:32 07/31/19 19:32 Doctor's Discharge - Discharge Referrals: MAYI CASTANEDA MD [Primary Care Provider] - Follow up as needed
--- NOTE | 2019-07-31 21:05 | ER Document Report ---
ED General - General Chief Complaint: Probable Seizure Stated Complaint: POSSIBLE SEIZURE Time Seen by Provider: 07/31/19 20:14 Primary Care Provider: MAYI CASTANEDA MD [ACTIVE STAFF] - Follow up as needed Mode of Arrival: Wheelchair TRAVEL OUTSIDE OF THE [place] IN LAST 30 DAYS: No - HPI Notes: Patient has history of stage IV breast cancer with metastasis to liver bone and brain presents having what appears to be simple partial, like seizure. She was in the car when her right side of her face became tingling in her right arm curved inward involuntarily and she was unable to swallow. This lasted several minutes and then went leaves on its own without intervention. She is not on any antiepileptics or steroids at this time. She is currently out of radiation to the brain and had this for possibly 10 days ago no recent fevers or illnesses. Her only symptoms are a dull headache on the right side of her parietal scalp. Recent trauma or falls - Related Data Allergies/Adverse Reactions: No Known Allergies Allergy (Unverified 05/15/15 16:01) Past Medical History - General Information source: Patient - Social History Smoking Status: Never Smoker Frequency of alcohol use: None Drug Abuse: None Family History: Reviewed & Not Pertinent Patient has suicidal ideation: No Patient has homicidal ideation: No - Past Medical History Cardiac Medical History: Denies: Hx Coronary Artery Disease, Hx Heart Attack, Hx Hypertension Pulmonary Medical History: Denies: Hx Asthma, Hx Bronchitis, Hx COPD, Hx Pneumonia Neurological Medical History: Denies: Hx Cerebrovascular Accident, Hx Seizures Malignancy Medical History: Reports: Hx Breast Cancer Musculoskeletal Medical History: Denies Hx Arthritis Past Surgical History: Reports: Hx Mastectomy, Hx Oral Surgery, Hx Tonsillectomy - Immunizations Hx Diphtheria, Pertussis, Tetanus Vaccination: Yes Review of Systems - Review of Systems Constitutional: No symptoms reported EENT: No symptoms reported Cardiovascular: No symptoms reported Respiratory: No symptoms reported Gastrointestinal: No symptoms reported Genitourinary: No symptoms reported Female Genitourinary: No symptoms reported Musculoskeletal: No symptoms reported Skin: No symptoms reported Hematologic/Lymphatic: No symptoms reported Neurological/Psychological: See HPI Physical Exam - Vital signs Vitals: Temp Pulse Resp BP Pulse Ox 98.1 F 103 H 20 149/82 H 100 07/31/19 19:32 07/31/19 19:32 07/31/19 19:32 07/31/19 19:32 07/31/19 19:32 - General General appearance: Appears well, Alert, Other - Tearful - HEENT Head: Normocephalic, Atraumatic Eyes: Normal Conjunctiva: Normal, Injected Cornea: Normal Extraocular movements intact: Yes Pupils: PERRL - Respiratory Respiratory status: No respiratory distress Chest status: Nontender Breath sounds: Normal - Cardiovascular Rhythm: Regular Heart sounds: Normal auscultation Murmur: No - Abdominal Inspection: Normal Distension: No distension Bowel sounds: Normal Tenderness: Nontender - Extremities General upper extremity: Normal inspection, Normal ROM General lower extremity: Normal inspection, Normal ROM Course - Re-evaluation Re-evalutation: 07/31/19 21:[address] Garcia. Will perform CT of the head to ensure no acute bleeding. Otherwise, will provide Keppra load bolus and 500 mg twice a day she is to follow-up with Dr. King tomorrow if negative work-up. 07/31/19 22:30 CT shows no considerable difference from prior examination. Will be discharged with Keppra per previous discussion and oncology follow-up tomorrow - Vital Signs Vital signs: Temp Pulse Resp BP Pulse Ox 98.1 F 103 H 20 149/82 H 100 07/31/19 19:32 07/31/19 19:32 07/31/19 19:32 07/31/19 19:32 07/31/19 19:32 - Laboratory Result Diagrams: 07/31/19 21:14 07/31/19 21:14 Laboratory results interpreted by me: 07/31/19 07/31/19 21:14 21:14 RDW 16.0 H Plt Count 131 L Lymph % (Auto) 12.8 L Glucose 113 H AST 70 H Total Protein 6.0 L - Diagnostic Test Radiology reviewed: Reports reviewed Discharge - Discharge Clinical Impression: Seizure-like activity Condition: Good Disposition: HOME, SELF-CARE Instructions: New Seizure ([facility]) Prescriptions: Levetiracetam [Keppra 500 mg Tablet] 500 mg PO Q12 #60 tablet Referrals: MAYI CASTANEDA MD [ACTIVE STAFF] - Follow up tomorrow
[2019-07-31 21:26] LABS: ABSOLUTE EOSINOPHILS # (AUTO) 0.1 10^3/uL (0.0-0.6); ABSOLUTE LYMPHOCYTES (AUTO) 0.6 10^3/uL (0.5-4.7); ABSOLUTE MONOCYTES (AUTO) 0.5 10^3/uL (0.1-1.4); ABSOLUTE NEUT (AUTO) 3.4 10^3/uL (1.7-8.2); HEMATOCRIT 38.3 % (36.0-47.0); HEMOGLOBIN 12.8 g/dL (12.0-15.5); LYMPHOCYTES % (AUTO) 12.8 % (13-45); MEAN CORPUSCULAR HEMOGLOBIN 29.9 pg (27.0-33.4); MEAN CORPUSCULAR HGB CONC 33.4 g/dL (32.0-36.0); MEAN CORPUSCULAR VOLUME 90 fl (80-97); PLATELET COUNT 131 10^3/uL (150-450); RED BLOOD COUNT 4.27 10^6/uL (3.72-5.28); SEGMENTED NEUTROPHILS % (AUTO) 73.2 % (42-78); TOTAL CELLS COUNTED % (AUTO) 100 %; WHITE BLOOD COUNT 4.6 10^3/uL (4.0-10.5)
[2019-07-31 21:44] LABS: ALBUMIN 3.9 g/dL (3.5-5.0); ALKALINE PHOSPHATASE 63 U/L (38-126); ANION GAP 8 (5-19); ASPARTATE AMINO TRANSFERASE 70 U/L (14-36); BILIRUBIN,DIRECT 0.1 mg/dL (0.0-0.4); BILIRUBIN,TOTAL 0.4 mg/dL (0.2-1.3); BLOOD UREA NITROGEN 11 mg/dL (7-20); CALCIUM 9.3 mg/dL (8.4-10.2); CARBON DIOXIDE 27 mmol/L (22-30); CHLORIDE 106 mmol/L (98-107); GLUCOSE 113 mg/dL (75-110); POTASSIUM 3.9 mmol/L (3.6-5.0)
[2019-07-31] MEDS ORDERED: PROCHLORPERAZINE EDISYLATE INJ 10 MG/2 ML VIAL IV ONE (22:13)
[2019-07-31] MEDS ORDERED: LEVETIRACETAM 1000 MG/NACL-ISO 1,000 MG/100 ML RTUPB IV SCH (22:15)
--- NOTE | 2019-07-31 22:15 | RADIOLOGY REPORT (SQ) ---
EXAM DESCRIPTION: CT HEAD WITHOUT IV CONTRAST COMPLETED DATE/TME: 07/31/2019 21:02 CLINICAL HISTORY: 54 years, Female, hx of brain mets, seizure today COMPARISON: MRI brain 07/04/2019. TECHNIQUE: Noncontrast CT brain. Images stored on PACS. All CT scanners at this facility use dose modulation, iterative reconstruction, and/or weight based dosing when appropriate to reduce radiation dose to as low as reasonably achievable (ALARA). [facility]: Dose Right [facility]: CareDose [facility]: Dose Right [facility]: Teradose 4D [facility]: [employer] LIMITATIONS: None. FINDINGS: In comparison to the previous examination, there is grossly stable appearance, when accounting for differences in modality, subcortical hypoattenuation of the LEFT frontal white matter suspected secondary to dural based lesions as noted on prior CT dated 07/04/2019. These dural based lesions are isointense to the brain parenchyma and are poorly visualized. With exception, the LEFT frontal dural based suspected metastasis is plaque-like in appearance at the level of the inner table of the RIGHT frontal calvarium and measuring 5 mm in thickness, (series 2, image 18). Overall, there are no findings to suggest significant mass effect or midline shift. No intraparenchymal hemorrhage or clear findings to suggest intraparenchymal lesions. The ventricles, sulci, and cisterns are within normal limits. The kan-white matter differentiation is preserved. There is no midline shift, intra- or extra-axial fluid collection/acute hemorrhage. The osseous structures are unremarkable. The paranasal sinuses and mastoid air cells are clear. IMPRESSION: 1. No acute intracranial abnormalities. 2. Grossly stable appearance of LEFT subcortical frontal vasogenic edema. 3. Grossly stable appearance of LEFT frontal dural based suspected metastasis. The remaining dural based lesions are not visualized on the current CT examination, secondary to isointense appearance. For evaluation of interval change, MRI pre and postcontrast is recommended. TECHNICAL DOCUMENTATION: Quality ID # [id number]: Final reports with documentation of one or more dose reduction techniques (e.g., Automated exposure control, adjustment of the mA and/or kV according to patient size, use of iterative reconstruction technique) copyright 2011 [employer]- All Rights Reserved
[2019-07-31] MEDS ORDERED: LEVETIRACETAM 1000 MG/NACL-ISO 1,000 MG/100 ML RTUPB IV ONE (23:00)
[2019-08-01] MEDS ORDERED: LEVETIRACETAM 1000 MG/NACL-ISO 1,000 MG/100 ML RTUPB IV SCH (10:00)
== END 2019-07-31 23:26 | disposition home or self-care (01) ==
LOC: ER 19:26
DX: R56.9 Unspecified convulsions (principal); R20.0 Anesthesia of skin; R13.10 Dysphagia, unspecified; Z85.3 Personal history of malignant neoplasm of breast; Z85.05 Personal history of malignant neoplasm of liver; Z85.830 Personal history of malignant neoplasm of bone
CPT/HCPCS: 99285; 96375; 96365; 36415; 85025; 80053; 70450; J0780; J1642; J1953

== ENCOUNTER → 2019-09-06 | Outpatient (CLI) | payer BC ==
--- NOTE | 2019-09-06 10:17 | RADIOLOGY REPORT (SQ) ---
EXAM DESCRIPTION: CT ABD/PELVIS WITH IV ORAL COMPLETED DATE/TIME: 09/06/2019 9:47 am REASON FOR STUDY: BREAST CA WITH BONE METS (C50.911)(C79.51) C50.911 MALIGNANT NEOPLASM OF UNSP SI TE OF RIGHT FEMALE YUE C79.51 SECONDARY MALIGNANT NEOPLASM OF BONE COMPARISON: 02/01/2019 TECHNIQUE: CT scan of the abdomen and pelvis performed using helical scanning technique with dynamic intravenous contrast injection. Patient was given oral contrast. Images reviewed with lung, soft ti ssue, and bone windows. Reconstructed coronal and sagittal MPR images reviewed. Delayed images for ev aluation of the urinary system also acquired. All images stored on PACS. All CT scanners at this facility use dose modulation, iterative reconstruction, and/or weight based d osing when appropriate to reduce radiation dose to as low as reasonably achievable (ALARA). [facility]: Dose Right [facility]: CareDose [facility]: Dose Right [facility]: Teradose 4D [facility]: [employer] CONTRAST TYPE AND DOSE: contrast/concentration: Isovue 350.00 mg/ml; Total Contrast Delivered: 51.0 ml; Total Saline Delivered: 65.0 ml RENAL FUNCTION: Creatinine 0.7 RADIATION DOSE: CT Rad equipment meets quality standard of care and radiation dose reduction techniq ues were employed. CTDIvol: 4.4 - 4.5 mGy. DLP: 640 mGy-cm.. LIMITATIONS: None. FINDINGS: LOWER CHEST: See separate report of the CT of the chest. LIVER: Multiple hypodense hepatic lesions, similar in distribution to prior. There is decreased [address] st able size. For reference inferior right hepatic lobe lesion measures 6 mm, previously 11 mm (series 3, image 28) no new discrete hepatic lesions. No intrahepatic ductal dilation. SPLEEN: Normal size. No focal lesions. PANCREAS: No masses. No significant calcifications. No adjacent inflammation or peripancreatic fluid collections. Pancreatic duct not dilated. GALLBLADDER: No identified stones by CT criteria. No inflammatory changes to suggest cholecystitis. ADRENAL GLANDS: No significant masses or asymmetry. RIGHT KIDNEY AND URETER: Multiple nonobstructing right renal stones, stable. Largest measuring 8 mm in the upper pole (Hounsfield units greater than 1,200). No hydronephrosis or hydroureter. LEFT KIDNEY AND URETER: No solid masses. Stable nonobstructing stones, largest within the lower frida e measuring 6 mm. No hydronephrosis or hydroureter. AORTA AND VESSELS: No aneurysm. No dissection. Renal arteries, SMA, celiac without stenosis. RETROPERITONEUM: Decreased size of the retroperitoneal lymph nodes. For reference largest left para- aortic node measures 6 mm in short axis (series 3, image 44), previously 8 mm. No new discrete adeno misty. BOWEL AND PERITONEAL CAVITY: No evidence of intestinal obstruction. No focal bowel wall thickening. APPENDIX: Not visualized. PELVIS: No mass. No free fluid. Normal bladder. ABDOMINAL WALL: No masses. No hernias. BONES: Stable diffuse osseous sclerosis. No new discrete osseous lesions. OTHER: No other significant finding. IMPRESSION: 1. Improve hepatic and retroperitoneal metastatic disease as above. No new intra-abdom inal/pelvic disease. 2. Stable diffuse osseous sclerosis. 3. No other evidence of acute intra- abdominal/pelvic process. TECHNICAL DOCUMENTATION: JOB ID: [id number] Quality ID # [id number]: Final reports with documentation of one or more dose reduction techniques (e.g., Au tomated exposure control, adjustment of the mA and/or kV according to patient size, use of iterative reconstruction technique) 2010 [employer]- All Rights Reserved Reading location - IP/workstation name: [email or web address]
--- NOTE | 2019-09-06 10:26 | RADIOLOGY REPORT (SQ) ---
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 Images reviewed with lung, soft tissue and bone windows. Reconstructed coronal and sagittal MPR and MIP images reviewed. All images stored on PACS. All CT scanners at this facility use dose modulation, iterative reconstruction, and/or weight based d osing when appropriate to reduce radiation dose to as low as reasonably achievable (ALARA). [facility]: Dose Right [facility]: CareDose [facility]: Dose Right [facility]: Teradose 4D [facility]: [employer] CONTRAST TYPE AND DOSE: See abdomen RENAL FUNCTION: Creatinine 0.7 RADIATION DOSE: . LIMITATIONS: None. FINDINGS: LUNGS AND PLEURA: Stable right lower lobe subcentimeter pulmonary nodule (series 6, image 80). Stable additional right upper lobe calcified granuloma. No new discrete nodules or masses. No pleural effusion or pneumothorax. No focal airspace disease. HILAR AND MEDIASTINAL STRUCTURES: No identified masses or abnormal nodes. HEART AND VASCULAR STRUCTURES: No aneurysm or dissection. No central pulmonary emboli. No pericardi al effusion. HARDWARE: Right internal jugular base chest port with catheter tip at right atrium. UPPER ABDOMEN: See separate report of the CT of the abdomen. THYROID AND OTHER SOFT TISSUES: No masses. No adenopathy. BONES: Stable diffuse sclerotic osseous disease. No new discrete lytic lesions. Pectus excavatum. OTHER: Bilateral breast prostheses. IMPRESSION: 1. No evidence of new intrathoracic metastatic disease. 2. Stable osseous sclerotic disease. 3. No other evidence of acute intrathoracic process. TECHNICAL DOCUMENTATION: JOB ID: [id number] Quality ID # [id number]: Final reports with documentation of one or more dose reduction techniques (e.g., Au tomated exposure control, adjustment of the mA and/or kV according to patient size, use of iterative reconstruction technique) 2010 [email or web address]- All Rights Reserved Reading location - IP/workstation name: [email or web address]
== END ==
LOC: RAD 08:50
PROVIDERS: ATTEND Internal Medicine Hematology & Oncology
DX: C50.911 Malignant neoplasm of unspecified site of right female breast (principal); C79.51 Secondary malignant neoplasm of bone; N20.0 Calculus of kidney
CPT/HCPCS: 71260; 74177; 82565

== ENCOUNTER → 2019-09-16 | Outpatient (CLI) | payer BC ==
--- NOTE | 2019-09-16 14:52 | RADIOLOGY REPORT (SQ) ---
EXAM DESCRIPTION: MRI HEAD COMBO COMPLETED DATE/TIME: 09/16/2019 10:26 am REASON FOR STUDY: MAL LATRICE OF UNSPE SITE OF R FEMALE BREAST C50.911 MALIGNANT NEOPLASM OF UNSP SITE OF RIGHT FEMALE YUE C79.31 SECONDARY MALIGNANT NEOPLASM OF BRAIN COMPARISON: 07/04/2019. TECHNIQUE: Multiplanar imaging includes noncontrasted T1, T2, FLAIR, diffusion with ADC map and post gadolinium contrast T1 sequences. Images stored on PACS. CONTRAST TYPE AND DOSE: 10 mL Dotarem. RENAL FUNCTION: Not indicated. ACR Type II contrast agent associated with few, if any, unconfounded cases of NSF LIMITATIONS: None. FINDINGS: ANATOMY: No anomalies. Normal vascular flow voids. Pituitary fossa normal. CSF SPACES: Normal in size and contour. No hemorrhage. CEREBRUM: Generalized diffuse dural enhancement. Several focal areas of nodular dural thickening wit h enhancement as follows: Left frontal region, axial series 1400 image 24 and coronal series 1402 image 28. Current measuremen ts 2.1 cm AP, 1.2 cm transverse, and 1.5 cm craniocaudal. Previous measurements 2.5 x 1.5 x 1.8 cm. Associated vasogenic edema in the underlying white matter. Right frontal region, axial series 1400, image 20 and coronal series 1402, image 13. Current measure ments 1.6 cm AP, 0.4 cm transverse, and 1.8 cm craniocaudal. Previous measurements 2.4 x 0.9 by 3.1 cm. Right posterior parietal region, axial series 1400, image 25 and coronal series 1402, image 37. Curr ent measurements 1.6 cm AP, 0.6 cm transverse, and 1.6 cm craniocaudal. Previous measurements 1.8 x 0.7 x 2.3 cm. Left posterior temporal region, axial series 1400, image 18 and coronal series 1402, image 38. Curre nt measurements 1.5 cm AP, 0.3 cm transverse, and 2.0 cm craniocaudal. Previous measurements 2.6 x 0 .9 x 2.4 cm. No new lesions. No parenchymal cerebral lesions. POSTERIOR FOSSA: No signal alteration. No hemorrhage. No edema, masses, or mass effect. Internal syed tory canals, cerebellopontine angles, mastoids normal. No enhancing lesions. No abnormal enhancement post contrast. DIFFUSION IMAGING: Negative for acute or subacute infarction. ORBITS: No masses. Globes normal. PARANASAL SINUSES: No fluid levels. Mucosa normal. OTHER: No other significant finding. IMPRESSION: GENERALIZED DURAL ENHANCEMENT WITH SEVERAL FOCAL AREAS OF NODULAR DURAL THICKENING. DESCRIBED ABOVE, THESE LESIONS HAVE ALL DECREASED IN SIZE. VASOGENIC EDEMA ASSOCIATED WITH THE LEFT FRONTAL LESION IS UNCHANGED. NO PROGRESSION OR NEW FINDINGS. EVIDENCE OF ACUTE STROKE: NO. TECHNICAL DOCUMENTATION: JOB ID: [id number] [employer]- All Rights Reserved Reading location - IP/workstation name: [email or web address]
== END ==
LOC: RAD 09:27
PROVIDERS: ATTEND Internal Medicine Hematology & Oncology
DX: C50.911 Malignant neoplasm of unspecified site of right female breast (principal); C79.31 Secondary malignant neoplasm of brain
CPT/HCPCS: 70553; A9576

== ENCOUNTER 2019-11-06 18:19 | Emergency (ER) | payer BC ==
[2019-11-06 19:29] LABS: HEMATOCRIT 38.4 % (36.0-47.0); HEMOGLOBIN 12.7 g/dL (12.0-15.5); MEAN CORPUSCULAR HEMOGLOBIN 30.7 pg (27.0-33.4); MEAN CORPUSCULAR HGB CONC 33.2 g/dL (32.0-36.0); MEAN CORPUSCULAR VOLUME 93 fl (80-97); PLATELET COUNT 177 10^3/uL (150-450); RED BLOOD COUNT 4.15 10^6/uL (3.72-5.28); RED CELL DISTRIBUTION WIDTH 17.6 % (11.5-14.0); WHITE BLOOD COUNT 20.4 10^3/uL (4.0-10.5)
[2019-11-06 19:35] LABS: APPEARANCE,URINE CLEAR; BILIRUBIN,URINE NEGATIVE (NEGATIVE); COLOR,URINE STRAW; GLUCOSE, URINE NEGATIVE (NEGATIVE); KETONES,URINE NEGATIVE (NEGATIVE); LEUKOCYTE ESTERASE,URINE NEGATIVE (NEGATIVE); NITRITE,URINE NEGATIVE (NEGATIVE); PROTEIN,URINE NEGATIVE (NEGATIVE); UROBILINOGEN,URINE NEGATIVE mg/dL (<2.0)
[2019-11-06 19:50] LABS: ABSOLUTE LYMPHOCYTES# (MANUAL) 0.2 10^3/uL (0.5-4.7); ABSOLUTE MONOCYTES # (MANUAL) 0.6 10^3/uL (0.1-1.4); ANISOCYTOSIS 1+; BAND NEUTROPHILS % (MANUAL) 5 % (3-5); BASOPHILS % (MANUAL) 0 % (0-2); EOSINOPHILS % (MANUAL) 0 % (0-6); LYMPHOCYTES % (MANUAL) 1 % (13-45); MONOCYTES % (MANUAL) 3 % (3-13); PLATELET COMMENT ADEQUATE; SEGMENTED NEUTROPHILS % (MAN) 91 % (42-78); TOTAL CELLS COUNTED 100
[2019-11-06 19:57] LABS: URINE AMPHETAMINES SCREEN NEGATIVE; URINE BARBITURATES SCREEN NEGATIVE; URINE BENZODIAZEPINES SCREEN NEGATIVE; URINE COCAINE SCREEN NEGATIVE; URINE MARIJUANA (THC) SCREEN NEGATIVE; URINE METHADONE SCREEN NEGATIVE; URINE PHENCYCLIDINE SCREEN NEGATIVE
[2019-11-06 20:00] LABS: ALBUMIN 3.4 g/dL (3.5-5.0); ALKALINE PHOSPHATASE 129 U/L (38-126); ANION GAP 13 (5-19); ASPARTATE AMINO TRANSFERASE 93 U/L (14-36); BILIRUBIN,DIRECT 0.2 mg/dL (0.0-0.4); BILIRUBIN,TOTAL 0.4 mg/dL (0.2-1.3); BLOOD UREA NITROGEN 20 mg/dL (7-20); CALCIUM 8.7 mg/dL (8.4-10.2); CARBON DIOXIDE 21 mmol/L (22-30); CHLORIDE 106 mmol/L (98-107); GLUCOSE 102 mg/dL (75-110); POTASSIUM 3.7 mmol/L (3.6-5.0); TOTAL PROTEIN 5.4 g/dL (6.3-8.2)
[2019-11-06 20:23] LABS: ALCOHOL < 10 mg/dL (NONE DETECTED)
[2019-11-06] MEDS ORDERED: LEVETIRACETAM 500 MG TABLET PO ONE (22:33)
[2019-11-06] MEDS ORDERED: LORAZEPAM 0.5 MG TABLET PO ONE (22:43)
--- NOTE | 2019-11-06 22:53 | ER Document Report ---
ED General - General Chief Complaint: Probable Seizure Stated Complaint: POSSIBLE SEIZURE Time Seen by Provider: 11/06/19 21:30 Primary Care Provider: MONIQUE RUSH MD [Primary Care Provider] - Follow up as needed ARLETTE SKAGGS MD [ACTIVE STAFF] - Follow up as needed Mode of Arrival: Wheelchair Information source: Patient, Relative Notes: 54-year-old female presented to ED for possible seizures. She states she was getting up walking to the kitchen when she suddenly felt hot flushed and dizzy. She states she subsequently collapsed under her 's arms and was assisted to the couch. He states she became very stiff and rigid and did have some tremors for about 60 seconds but was unconscious for about 10 to 15 minutes. He states she was incontinent of urine. Brother states that she did have the tremors. She states she does have a history of seizures and takes Keppra once a day 500 mg. She states her last seizure was about 2 months ago. She states she was on Keppra twice a day but that it made her drowsy so they backed off to 4 months today. 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 She states on her last scan that there was on minimal except of the brain. She states she did receive chemo IV fluids and steroids as well as Neulasta yesterday. She states when she was in the doctor's office yesterday her white count was elevated and it is more elevated today. She states she has not had any fevers or illnesses. She is alert oriented respirations regular nonlabored speaking in full sentences answering all questions appropriately. She states while she was in the kitchen she felt so she asked her for 1/2 mg of Ativan she knows that she put it in her mouth but does not remember swallowing and she did vomit during the seizure so she does not know if she got the Ativan. TRAVEL OUTSIDE OF THE [place] IN LAST 30 DAYS: No - HPI Onset: This afternoon Onset/Duration: Sudden Quality of pain: Achy Severity: Mild Pain Level: 1 - After performing a Medical Screening Examination, I estimate there is LOW risk for CENTRAL CORD SYNDROME, EPIDURAL MASS LESION, SEVERE SPINAL STENOSIS, ARTERIAL DISSECTION, MENINGITIS, or ACUTE CORONARY SYNDROME, thus I consider the discharge disposition reasonable. I have reevaluated this patient multiple times and no significant life threatening changes are noted. The patient and I have discussed the diagnosis and risks, and we agree with discharging home to follow-up on an outpatient basis with the understanding that symptoms and presentations can change. We also discussed returning to the Emergency Department immediately if new or worsening symptoms occur. We have discussed the symptoms which are most concerning (e.g., saddle anesthesia, urinary or bowel incontinence or retention, changing or worsening pain) that necessitate immediate return. Associated symptoms: Headache, Other - States she had a seizure at home after becoming very flushed and dizzy Exacerbated by: Denies Relieved by: Denies Similar symptoms previously: Yes Recently seen / treated by doctor: Yes - Related Data Allergies/Adverse Reactions: No Known Allergies Allergy (Unverified 05/15/15 16:01) Past Medical History - General Information source: Patient, Relative - Social History Smoking Status: Never Smoker Frequency of alcohol use: None Drug Abuse: None Lives with: Family Family History: Reviewed & Not Pertinent Patient has suicidal ideation: No Patient has homicidal ideation: No - Past Medical History Cardiac Medical History: Reports: None Pulmonary Medical History: Reports: None EENT Medical History: Reports: None Neurological Medical History: Reports: Hx Seizures Endocrine Medical History: Reports: None Renal/ Medical History: Reports: None Malignancy Medical History: Reports: Hx Breast Cancer - With mets to brain bone and liver GI Medical History: Reports: Other - Liver mets Musculoskeletal Medical History: Reports Other - Metastatic cancer Skin Medical History: Reports None Psychiatric Medical History: Reports: None Traumatic Medical History: Reports: None Past Surgical History: Reports: Hx Mastectomy, Hx Oral Surgery, Hx Tonsillectomy - Immunizations Hx Diphtheria, Pertussis, Tetanus Vaccination: Yes Review of Systems - Review of Systems Constitutional: No symptoms reported EENT: No symptoms reported Cardiovascular: Dizziness Respiratory: No symptoms reported Gastrointestinal: No symptoms reported Genitourinary: No symptoms reported Female Genitourinary: No symptoms reported Musculoskeletal: No symptoms reported Skin: No symptoms reported Hematologic/Lymphatic: No symptoms reported Neurological/Psychological: Seizure, Headaches -: Yes All other systems reviewed and negative Physical Exam - Vital signs Vitals: Temp Pulse Resp BP Pulse Ox 97.7 F 90 16 100/66 99 11/06/19 18:30 11/06/19 18:30 11/06/19 18:30 11/06/19 18:30 11/06/19 18:30 Interpretation: Normal - General General appearance: Appears well, Alert - HEENT Head: Normocephalic, Atraumatic Eyes: Normal Pupils: PERRL - Respiratory Respiratory status: No respiratory distress Chest status: Nontender Breath sounds: Normal Chest palpation: Normal - Cardiovascular Rhythm: Regular Heart sounds: Normal auscultation Murmur: No - Abdominal Inspection: Normal Distension: No distension Bowel sounds: Normal Tenderness: Nontender Organomegaly: No organomegaly - Back Back: Normal, Nontender - Extremities General upper extremity: Normal inspection, Nontender, Normal color, Normal ROM, Normal temperature General lower extremity: Normal inspection, Nontender, Normal color, Normal ROM, Normal temperature, Normal weight bearing. No: Leida's sign - Neurological Neuro grossly intact: Yes Cognition: Normal Orientation: AAOx4 Marion Coma Scale Eye Opening: Spontaneous Marion Coma Scale Verbal: Oriented Marion Coma Scale Motor: Obeys Commands Molly Coma Scale Total: 15 Speech: Normal Motor strength normal: LUE, RUE, LLE, RLE Sensory: Normal - Psychological Associated symptoms: Normal affect, Normal mood - Skin Skin Temperature: Warm Skin Moisture: Dry Skin Color: Normal Course - Re-evaluation Re-evalutation: 11/07/19 08:45 Patient was treated with Keppra in the emergency room. Dr Skaggs was consulted for signs and symptoms. He recommended a CT of the head and call neurology at [place] for any different treatment that she would need due to the seizure. Dr. Benito and [place] was called. He stated to give the patient her Keppra patient needs to be increased to 500 mg twice daily and if the CT was unchanged from the previous CT that she could go home and follow-up with her oncologist. CT was completed and there was improved from the previous CT her oncologist was we notified and patient was discharged home. Patient was given 1/2 mg of Ativan due to the anxiety as she stated she had developed the one she took at home. - Vital Signs Vital signs: Temp Pulse Resp BP Pulse Ox 99.1 F 90 21 H 105/60 98 11/07/19 00:46 11/06/19 18:30 11/07/19 00:46 11/07/19 00:46 11/07/19 00:46 - Laboratory Result Diagrams: 11/06/19 19:10 11/06/19 19:10 Laboratory results interpreted by me: 11/06/19 11/06/19 19:10 19:10 WBC 20.4 H RDW 17.6 H Seg Neuts % (Manual) 91 H Lymphocytes % (Manual) 1 L Abs Neuts (Manual) 19.6 H Abs Lymphs (Manual) 0.2 L Carbon Dioxide 21 L AST 93 H Alkaline Phosphatase 129 H Total Protein 5.4 L Albumin 3.4 L - Diagnostic Test Radiology reviewed: Image reviewed, Reports reviewed Discharge - Discharge Clinical Impression: Seizure Condition: Stable Disposition: HOME, SELF-CARE Additional Instructions: Seizure You have had a seizure. Seizure disorders (epilepsy) of one sort or another affect about one out of 50 people. The seizure occurs because of abnormal electrical activity in the brain. Seizures may be due to drugs and alcohol, strokes, brain injury, or infection. In the most common form of epilepsy, no cause can be found. You will require further evaluation to determine the cause of your seizure, and to determine whether anti-seizure medication is required. This follow-up testing is important, so please call us if you encounter problems with scheduling of tests or appointments. YOU SHOULD NOT DRIVE until released to do so by your physician. The law requires that seizures be reported to the student truck driver's license bureau--a seizure while driving could be catastrophic. Call the doctor if seizures recur, or if you develop new symptoms such as fever, severe headache, stiff neck, confusion or increasing sleepiness, weakness or numbness, or visual problems. I have spoken with your oncologist Dr. Skaggs. We have repeated your CAT scan of the brain and it is actually improved from your CAT scan done in July. Please be sure to keep your appointment for your MRI on 21 November. We have given you a dose of Keppra in the emergency room as you had missed your evening dose. Please follow-up with Dr. Skaggs tomorrow for schedule a follow-up visit for the seizure. I have also consulted a neurologist at [facility]. Recommended that your Keppra dose be increased. I have discussed this with Dr. Skaggs. He will discuss these plans with you and with a neurologist and have you consult with a neurologist. FOLLOW-UP CARE: If you have been referred to a physician for follow-up care, call the physicians office for an appointment as you were instructed or within the next two days. If you experience worsening or a significant change in your symptoms, notify the physician immediately or return to the Emergency Department at any time for re-evaluation. Referrals: MONIQUE RUSH MD [Primary Care Provider] - Follow up as needed ARLETTE SKAGGS MD [ACTIVE STAFF] - Follow up as needed
--- NOTE | 2019-11-06 23:19 | RADIOLOGY REPORT (SQ) ---
EXAM: CT HEAD WITHOUT IV CONTRAST CLINICAL INDICATION: 54-year-old female with seizure. COMPARISON: MRI brain 09/16/2018. TECHNIQUE: CT brain without contrast. This exam was performed according to our departmental dose optimization program which includes use of automated exposure control, adjustment of the mA and/or kV according to patient size and/or use of iterative reconstruction technique. FINDINGS: Reidentification of a focal area of gliosis and/or edema present at the level of the posterior aspect of the LEFT side frontal lobe. Adjacent to this focal area of subcortical white matter hypoattenuation is a more focal area of lobulated soft tissue attenuation with focal areas of calcification of uncertain etiology raising the possibility of a dural based metastasis versus less likely. Secondary to isodense appearance to the adjacent cortex, measurement is limited, however grossly measures approximately 7 mm in maximal thickness, on MRI measuring approximately 1 cm previously. Additionally, the more focal area of diffuse extra-axial dural based soft tissue attenuation at the level of the RIGHT frontal lobe measures approximately 3 mm in thickness, on MRI 4 mm in thickness previously. Additional reported areas of described dural enhancement and nodularity are too small to characterize on CT examination. The ventricles, sulci, and cisterns are within normal limits. The kan-white matter differentiation is preserved. There is no midline shift, intra- or extra-axial fluid collection/acute hemorrhage. The osseous structures are unremarkable. The paranasal sinuses and mastoid air cells are clear. IMPRESSION: 1. No acute intracranial abnormalities. 2. Extra-axial based lesions as detailed above appear to be similar in comparison to MRI dated 09/16/2018 when accounting for differences in modality. No new clear areas of edema or mass, mass effect are clearly identified, however limited by CT technique. Correlation with MRI pre and postcontrast may be considered.
[2019-11-07 01:08] VITALS: BP 105/60
== END 2019-11-07 01:10 | disposition home or self-care (01) ==
LOC: ER 18:19
DX: R56.9 Unspecified convulsions (principal); R42 Dizziness and giddiness; C50.919 Malignant neoplasm of unspecified site of unspecified female breast; C78.7 Secondary malignant neoplasm of liver and intrahepatic bile duct; C79.31 Secondary malignant neoplasm of brain
CPT/HCPCS: 36591; 99284; 36415; 80307 ×2; 83735; 85025; 80053; 81001; 70450; J1642

== ENCOUNTER → 2019-11-19 | Outpatient (CLI) | payer BC ==
--- NOTE | 2019-11-19 17:49 | RADIOLOGY REPORT (SQ) ---
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 Images stored on PACS. CONTRAST TYPE AND DOSE: 10 mL of IV mL Dotarem. RENAL FUNCTION: Not indicated. ACR Type II contrast agent associated with few, if any, unconfounded cases of NSF LIMITATIONS: None. 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 Since the prior study 09/16/2019, there has been a significant decrease in thickening and enhancement of the dural metastatic disease over the right anterior frontal region, right frontal convexity, rig ht squamous temporal region, and left posterior temporal regions. Today, these areas of enhancement are less than 5 mm in thickness. Patient had a more prominent dural-based metastatic lesion in the left posterior perisylvian region o n prior imaging. Today, an 11 x 9 mm enhancing dural-based nodule persists in the left posterior per isylvian region (was 2 x 1.2 cm on 09/16/2019). There is also a decrease in the adjacent vasogenic e tory over the left posterior frontal perisylvian brain parenchyma on FLAIR images 17 through 21. ANATOMY: No developmental anomalies CSF SPACES: Normal in size and contour. No hemorrhage. CEREBRUM: No MR findings worrisome for acute ischemic change, acute intracranial hemorrhage, mass eff ect, or midline shift. Minimal vasogenic edema left posterior frontal subcortical white matter adjac ent to a dural-based metastatic lesion as above, less prominent than on 09/16/2019. POSTERIOR FOSSA: No signal alteration. No hemorrhage. No edema, masses, or mass effect. Internal syed tory canals, cerebellopontine angles, mastoids normal. No enhancing lesions. No abnormal enhancement post contrast. DIFFUSION IMAGING: Negative for acute or subacute infarction. ORBITS: No masses. Globes normal. PARANASAL SINUSES: No fluid levels. Mucosa normal. OTHER: No other significant finding. IMPRESSION: Treatment response with decreased thickness of dural-based metastatic lesions, decrease in vasogenic edema left posterior frontal cortex EVIDENCE OF ACUTE STROKE: NO. TECHNICAL DOCUMENTATION: JOB ID: [id number] [employer]- All Rights Reserved Reading location - IP/workstation name: [email or web address]
== END ==
LOC: RAD 10:02
PROVIDERS: ATTEND Radiology Radiation Oncology
DX: C79.31 Secondary malignant neoplasm of brain (principal); C50.911 Malignant neoplasm of unspecified site of right female breast; Z17.0 Estrogen receptor positive status [ER+]; C79.51 Secondary malignant neoplasm of bone
CPT/HCPCS: 70553; A9576

== ENCOUNTER → 2020-01-23 | Outpatient (CLI) | payer BC ==
--- NOTE | 2020-01-23 14:28 | RADIOLOGY REPORT (SQ) ---
EXAM DESCRIPTION: MRI HEAD COMBO COMPLETED DATE/TIME: 01/23/2020 9:25 am REASON FOR STUDY: C50.911 MALIGNANT NEOPLASM OF UNSPECIFIED SITE OF RIGHT FEMALE BREAST C50.911 MAL IGNANT NEOPLASM OF UNSP SITE OF RIGHT FEMALE YUE C79.31 SECONDARY MALIGNANT NEOPLASM OF BRAIN COMPARISON: 11/19/2019 TECHNIQUE: Multiplanar imaging includes noncontrasted T1, T2, FLAIR, diffusion with ADC map and post gadolinium contrast T1 sequences. Images stored on PACS. CONTRAST TYPE AND DOSE: 10 mL Dotarem. RENAL FUNCTION: Not indicated. ACR Type II contrast agent associated with few, if any, unconfounded cases of NSF LIMITATIONS: None. FINDINGS: ANATOMY: No anomalies. Normal vascular flow voids. Pituitary fossa normal. CSF SPACES: Normal in size and contour. No hemorrhage. CEREBRUM: Interval decrease in dural metastatic lesion left posterior frontal lobe measuring approxim ately 9 x 7 mm, previously approximately 9 x 11 mm. Slight decrease in mild associated vasogenic [place]. No hemorrhage. No new lesions. Stable areas of dural thickening right frontal and posterior pa rietal lobes, left posterior temporal lobe. POSTERIOR FOSSA: No signal alteration. No hemorrhage. No edema, masses, or mass effect. Internal syed tory canals, cerebellopontine angles, normal. Trace of fluid in the mastoids. No enhancing lesions. No abnormal enhancement post contrast. DIFFUSION IMAGING: Negative for acute or subacute infarction. ORBITS: No masses. Globes normal. PARANASAL SINUSES: No fluid levels. Mucosa normal. OTHER: No other significant finding. IMPRESSION: Favorable response to therapy. Decrease in size of left posterior frontal lobe dural me tastasis. EVIDENCE OF ACUTE STROKE: NO. TECHNICAL DOCUMENTATION: JOB ID: [id number] [email or web address]- All Rights Reserved Reading location - IP/workstation name: [email or web address]
== END ==
LOC: RAD 08:17
PROVIDERS: ATTEND Radiology Radiation Oncology
DX: C79.31 Secondary malignant neoplasm of brain (principal); C50.911 Malignant neoplasm of unspecified site of right female breast; Z17.0 Estrogen receptor positive status [ER+]; C79.51 Secondary malignant neoplasm of bone
CPT/HCPCS: 82565; 70553; A9576

== ENCOUNTER → 2020-02-25 | Outpatient (CLI) | payer BC ==
--- NOTE | 2020-02-25 14:59 | RADIOLOGY REPORT (SQ) ---
EXAM DESCRIPTION: L SPINE WHOLE; PELVIS AP IMAGES COMPLETED DATE/TIME: 02/25/2020 2:04 pm REASON FOR STUDY: BREAST CA/SECONDARY BONE CA COMPARISON: CT studies, bone scan, PET study from last year, multiple previous exams. No prior bone images from recently. FINDINGS: One view pelvis: Patchy diffuse increased bone density throughout without developing destr uctive lesions or fracture. Known osseous metastatic disease. SI joints and symphysis intact. Mild degenerative spurring in the hips. Five view lumbosacral spine: No significant malalignment. Multilevel disc disease. Heterogeneous i ncreased diffuse bone density throughout the visualized spine and pelvis. Known osseous metastatic d isease. No fracture appreciated. Probable bilateral nephrolithiasis. TECHNICAL DOCUMENTATION: JOB ID: [id number] Reading location - IP/workstation name: [email or web address]
--- NOTE | 2020-02-25 14:59 | RADIOLOGY REPORT (SQ) ---
EXAM DESCRIPTION: L SPINE WHOLE; PELVIS AP IMAGES COMPLETED DATE/TIME: 02/25/2020 2:04 pm REASON FOR STUDY: BREAST CA/SECONDARY BONE CA COMPARISON: CT studies, bone scan, PET study from last year, multiple previous exams. No prior bone images from recently. FINDINGS: One view pelvis: Patchy diffuse increased bone density throughout without developing destr uctive lesions or fracture. Known osseous metastatic disease. SI joints and symphysis intact. Mild degenerative spurring in the hips. Five view lumbosacral spine: No significant malalignment. Multilevel disc disease. Heterogeneous i ncreased diffuse bone density throughout the visualized spine and pelvis. Known osseous metastatic d isease. No fracture appreciated. Probable bilateral nephrolithiasis. TECHNICAL DOCUMENTATION: JOB ID: [id number] Reading location - IP/workstation name: [email or web address]
== END ==
LOC: RAD 13:37
PROVIDERS: ATTEND Internal Medicine Hematology & Oncology
DX: C50.911 Malignant neoplasm of unspecified site of right female breast (principal); C79.51 Secondary malignant neoplasm of bone
CPT/HCPCS: 72110; 72170

== ENCOUNTER → 2020-03-20 | Outpatient (CLI) | payer BC ==
--- NOTE | 2020-03-20 11:20 | RADIOLOGY REPORT (SQ) ---
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 Images stored on PACS. CONTRAST TYPE AND DOSE: 10 mL Dotarem. RENAL FUNCTION: Not indicated. ACR Type II contrast agent associated with few, if any, unconfounded cases of NSF LIMITATIONS: None. FINDINGS: ANATOMY: No anomalies. Normal vascular flow voids. Pituitary fossa normal. CSF SPACES: Normal in size and contour. No hemorrhage. CEREBRUM: Dural-based metastases are again noted. All are slightly smaller in size. The left registered nursing professor ior frontal lobe lesion measures approximately 5.2 x 4.8 mm in size. Previously this measures 6.7 x 9.1 mm. The anterior right frontal lobe lesion measures 4.4 mm in greatest transverse diameter simone red to 4.7 on prior study. Small lesion in the right frontal lobe superiorly measures 4 mm it is carlin ssly unchanged. Dural enhancement in the right posterior parietal lobe best demonstrated on series 1 0, image 21 is also unchanged. Vasogenic edema associated with the parietal lobe lesion on the left is slightly improved as well. POSTERIOR FOSSA: No signal alteration. No hemorrhage. No edema, masses, or mass effect. Internal syed tory canals, cerebellopontine angles, mastoids normal. No enhancing lesions. No abnormal enhancement post contrast. DIFFUSION IMAGING: Negative for acute or subacute infarction. ORBITS: No masses. Globes normal. PARANASAL SINUSES: No fluid levels. Mucosa normal. OTHER: No other significant finding. IMPRESSION: Persistent positive response to therapy. Dural-based metastatic lesions continue to rem ains stable or are decreased in size. No new lesions. EVIDENCE OF ACUTE STROKE: NO. TECHNICAL DOCUMENTATION: JOB ID: [id number] 2010 [employer]- All Rights Reserved Reading location - IP/workstation name: [email or web address]
== END ==
LOC: RAD 09:23
PROVIDERS: ATTEND Internal Medicine Hematology & Oncology
DX: C50.911 Malignant neoplasm of unspecified site of right female breast (principal); C71.9 Malignant neoplasm of brain, unspecified
CPT/HCPCS: 82565; 70553; A9576

== ENCOUNTER → 2020-08-06 | Outpatient (CLI) | payer BC ==
--- NOTE | 2020-08-06 11:01 | RADIOLOGY REPORT (SQ) ---
EXAM DESCRIPTION: CT ABD/PELVIS WITH IV ORAL; CT CHEST WITH IMAGES COMPLETED DATE/TIME: 08/06/2020 9:11 am; 08/06/2020 9:01 am REASON FOR STUDY: C50.911 MALIGNANT NEOPLASM OF UNSP SITE OF RIGHT FEMALE BREAST C50.911 MALIGNANT NEOPLASM OF UNSP SITE OF RIGHT FEMALE YUE COMPARISON: 02/01/2019 and 09/06/2019 CONTRAST TYPE AND DOSE: contrast/concentration: Isovue 350.00 mmol/ml; Total Contrast Delivered: 80. 0 ml; Total Saline Delivered: 39.9 ml RENAL FUNCTION: BUN 16; creatinine 0.7 TECHNIQUE: CT scan of the chest performed using helical scanning technique with dynamic intravenous contrast injection. Images reviewed with lung, soft tissue and bone windows. Reconstructed coronal a nd sagittal MPR images reviewed. All images stored on PACS. CT scan of the abdomen and pelvis performed with intravenous and with oral contrastusing helical scan melissa technique with dynamic intravenous contrast injection. Images reviewed with lung, soft tissue a nd bone windows. Reconstructed coronal and sagittal MPR images reviewed. Delayed images for evaluat ion of the urinary system also acquired and evaluated. All images stored on PACS. All CT scanners at this facility use dose modulation, iterative reconstruction, and/or weight based d osing when appropriate to reduce radiation dose to as low as reasonably achievable (ALARA). [facility]: Dose Right [facility]: CareDose [facility]: Dose Right [facility]: Teradose 4D [facility]: [employer] RADIATION DOSE: CT Rad equipment meets quality standard of care and radiation dose reduction techniq ues were employed. CTDIvol: 4.4 - 4.8 mGy. DLP: 615 mGy-cm. . LIMITATIONS: None. FINDINGS: CHEST: LUNGS AND PLEURA: No opacities, nodules, masses. No pneumothorax. No effusions. HILAR AND MEDIASTINAL STRUCTURES: No identified masses or abnormal nodes. HEART AND VASCULAR STRUCTURES: No aneurysm or dissection. No central pulmonary emboli. No pericardi al effusion. HARDWARE: None. THYROID AND OTHER SOFT TISSUES: No masses. No adenopathy. BONES: Re- demonstration of diffusely increased mineralization, not significantly changed in the stud y interval. OTHER: Right anterior chest wall Port-A-Cath terminates at the cavoatrial junction. Bilateral breast implants. ABDOMEN AND PELVIS: LIVER: Diminutive appearance with increasingly nodular contours. Scattered hypoattenuating foci appe ars somewhat less conspicuous on today's examination. No new findings. SPLEEN: Normal size. No focal lesions. PANCREAS: No masses. No significant calcifications. No adjacent inflammation or peripancreatic fluid collections. Pancreatic duct not dilated. GALLBLADDER: No identified stones by CT criteria. No inflammatory changes to suggest cholecystitis. ADRENAL GLANDS: Macrolobular mass appears to arise from the external limb of the left adrenal gland a ppears to be increased in size over the study interval, measuring 4.3 x 2.3 by 3.5 cm on today's exam ination. Likewise, a smaller similar-appearing mass arising from the body of the right adrenal gland appears increased in size, measuring 2.1 x 1.3 x 2.1 cm on today's examination. RIGHT KIDNEY AND URETER: No solid masses. Stable CT appearance of a grouping of nonobstructing nephr oliths. No hydronephrosis or hydroureter. LEFT KIDNEY AND URETER: No solid masses. A previously demonstrated nonobstructing nephrolith has gypsy rated into the proximal ureter without significant hydronephrosis or ureterectasis at this time. . N o hydronephrosis or hydroureter. AORTA AND VESSELS: No aneurysm. No dissection. Renal arteries, SMA, celiac without stenosis. RETROPERITONEUM: Continued decrease an size of previously demonstrated retroperitoneal lymph nodes. A previously measured left periaortic lymph node measures 5 mm in the short axis on today's examinati on (previously 6 mm). BOWEL AND PERITONEAL CAVITY: No masses or inflammatory changes. No free fluid or peritoneal masses. APPENDIX: Normal. ABDOMINAL WALL: No masses. No hernias. PELVIS: No mass or free fluid. Normal bladder. BONES: Re- demonstration of diffusely increased mineralization, not significantly changed in the stud y interval. OTHER: No other significant finding. IMPRESSION: 1. Continued improvement in the appearance of hepatic and retroperitoneal metastatic di sease. However, increasing size of bilateral adrenal masses. 2. Stable appearance of diffusely increased osseous mineralization. 3. Other stable chronic and incidental findings as detailed above. No acute findings. TECHNICAL DOCUMENTATION: JOB ID: [id number] Quality ID # [id number]: Final reports with documentation of one or more dose reduction techniques (e.g., Au tomated exposure control, adjustment of the mA and/or kV according to patient size, use of iterative reconstruction technique) 2010 [email or web address]- All Rights Reserved Reading location - IP/workstation name: [email or web address]
== END ==
LOC: RAD 08:31
PROVIDERS: ATTEND Internal Medicine Hematology & Oncology
DX: C50.911 Malignant neoplasm of unspecified site of right female breast (principal); C79.51 Secondary malignant neoplasm of bone
CPT/HCPCS: 71260; 74177; J1642

== ENCOUNTER → 2020-09-15 | Outpatient (CLI) | payer BC ==
--- NOTE | 2020-09-15 14:30 | RADIOLOGY REPORT (SQ) ---
EXAM DESCRIPTION: MRI HEAD COMBO IMAGES COMPLETED DATE/TIME: 09/15/2020 11:04 am REASON FOR STUDY: SECONDARY MALIGNANT NEOPLASM OF BRAIN C79.31 SECONDARY MALIGNANT NEOPLASM OF BRAI N COMPARISON: Multiple, most recent 06/10/2020. TECHNIQUE: Multiplanar imaging includes noncontrasted T1, T2, FLAIR, diffusion with ADC map and post gadolinium contrast T1 sequences. Images stored on PACS. CONTRAST TYPE AND DOSE: 10 mL Prohance. RENAL FUNCTION: Not indicated. ACR Type II contrast agent associated with few, if any, unconfounded cases of NSF LIMITATIONS: None. FINDINGS: ANATOMY: No anomalies. Normal vascular flow voids. Pituitary fossa normal. CSF SPACES: Normal in size and contour. No hemorrhage. CEREBRUM: Stable bilateral dural metastatic lesions without progression or new lesions. Interval inc rease in small geographic areas of increased T2 signal bilateral frontal lobes, left greater than rig ht, right temporal lobe consistent with radiation therapy. No hemorrhage or mass effect. POSTERIOR FOSSA: No signal alteration. No hemorrhage. No edema, masses, or mass effect. Internal syed tory canals, cerebellopontine angles, mastoids normal. No enhancing lesions. No abnormal enhancement post contrast. DIFFUSION IMAGING: Negative for acute or subacute infarction. ORBITS: No masses. Globes normal. PARANASAL SINUSES: No fluid levels. Mucosa normal. OTHER: No other significant finding. IMPRESSION: Stable dural metastasis. EVIDENCE OF ACUTE STROKE: NO. TECHNICAL DOCUMENTATION: JOB ID: [id number] 2010 [employer]- All Rights Reserved Reading location - IP/workstation name: [email or web address]
== END ==
LOC: RAD 09:48
PROVIDERS: ATTEND Radiology Radiation Oncology
DX: C79.31 Secondary malignant neoplasm of brain (principal); C50.911 Malignant neoplasm of unspecified site of right female breast; Z17.0 Estrogen receptor positive status [ER+]
CPT/HCPCS: 82565; 70553; A9576

== ENCOUNTER → 2020-11-02 | Outpatient (CLI) | payer BC ==
--- NOTE | 2020-11-02 10:23 | RADIOLOGY REPORT (SQ) ---
EXAM DESCRIPTION: CT CHEST WITH; CT ABD/PELVIS WITH IV ORAL IMAGES COMPLETED DATE/TIME: 11/02/2020 8:34 am REASON FOR STUDY: (C50.911)MALIGNANT NEOPLASM OF UNSP SITE OF RIGHT FEMALE BREAST C50.911 MALIGNANT NEOPLASM OF UNSP SITE OF RIGHT FEMALE YUE COMPARISON: 08/06/2020. 09/06/2019. CONTRAST TYPE AND DOSE: contrast/concentration: Isovue 350.00 mmol/ml; Total Contrast Delivered: 80. 0 ml; Total Saline Delivered: 40.0 ml RENAL FUNCTION: Creatinine 0.7 TECHNIQUE: CT scan of the chest performed using helical scanning technique with dynamic intravenous contrast injection. Images reviewed with lung, soft tissue and bone windows. Reconstructed coronal a nd sagittal MPR images reviewed. All images stored on PACS. CT scan of the abdomen and pelvis performed with intravenous and with oral contrastusing helical scan melissa technique with dynamic intravenous contrast injection. Images reviewed with lung, soft tissue a nd bone windows. Reconstructed coronal and sagittal MPR images reviewed. Delayed images for evaluat ion of the urinary system also acquired and evaluated. All images stored on PACS. All CT scanners at this facility use dose modulation, iterative reconstruction, and/or weight based d osing when appropriate to reduce radiation dose to as low as reasonably achievable (ALARA). [facility]: Dose Right [facility]: CareDose [facility]: Dose Right [facility]: Teradose 4D [facility]: Smart [employer] RADIATION DOSE: CT Rad equipment meets quality standard of care and radiation dose reduction techniq ues were employed. CTDIvol: 4.5 - 4.9 mGy. DLP: 612 mGy-cm. . LIMITATIONS: None. FINDINGS: CHEST: LUNGS AND PLEURA: Stable 3 mm right lower lobe nodule image 68/125. No developing lesions. No infil trates or pleural disease. HILAR AND MEDIASTINAL STRUCTURES: No identified masses or abnormal nodes. HEART AND VASCULAR STRUCTURES: No aneurysm or dissection. No central pulmonary emboli. No pericardi al effusion. HARDWARE: Right port. THYROID AND OTHER SOFT TISSUES: No masses. No adenopathy. BONES: Diffuse bone disease with sclerosis throughout. Stable appearance. OTHER: No other significant finding. ABDOMEN AND PELVIS: LIVER: Chronic nodular contours. Scattered hypodensities particularly in the right lobe, nonprogress yen since August. No definite new lesions. SPLEEN: No developing lesions. PANCREAS: No masses. No significant calcifications. No adjacent inflammation or peripancreatic fluid collections. Pancreatic duct not dilated. GALLBLADDER: No identified stones by CT criteria. No inflammatory changes to suggest cholecystitis. ADRENAL GLANDS: Bilateral adrenal masses. Left greater than right. The left lesion measures up to 4 cm in maximal dimension, right measures up to 2.4 cm in maximal dimension. These are stable compare to August study. RIGHT KIDNEY AND URETER: Marked nonobstructive nephrolithiasis. LEFT KIDNEY AND URETER: Nonobstructive nephrolithiasis. AORTA AND VESSELS: No aneurysm. No dissection. Renal arteries, SMA, celiac without stenosis. No veno us clot detected. RETROPERITONEUM: Small retroperitoneal nodes, persistent and still subcentimeter. Largest is a left para-aortic node which looks slightly larger. Now just under 1 cm short axis. Axial image 39. BOWEL AND PERITONEAL CAVITY: No masses or inflammatory changes. No free fluid or peritoneal masses. APPENDIX: Normal. ABDOMINAL WALL: No masses. No hernias. PELVIS: No mass or free fluid. Normal bladder. BONES: Diffuse sclerotic disease. OTHER: No other significant finding. IMPRESSION: 1. Stable chest. No developing lung lesions. 2. Slightly progressive left retroperitoneal lymph node when compared to August. 3. Adrenal masses have enlarged compared to last year but look stable since more recent August study . 4. Stable appearance of the liver since August. 5. Diffuse osseous metastatic disease, chronic. TECHNICAL DOCUMENTATION: JOB ID: [id number] Quality ID # [id number]: Final reports with documentation of one or more dose reduction techniques (e.g., Au tomated exposure control, adjustment of the mA and/or kV according to patient size, use of iterative reconstruction technique) 2010 [employer]- All Rights Reserved Reading location - IP/workstation name: [email or web address]
== END ==
LOC: RAD 07:56
PROVIDERS: ATTEND Internal Medicine Hematology & Oncology
DX: C50.911 Malignant neoplasm of unspecified site of right female breast (principal); C79.51 Secondary malignant neoplasm of bone; E27.8 Other specified disorders of adrenal gland
CPT/HCPCS: 71260; 74177; 82565